=== PATIENT | male | born 1970 | race Caucasian/White ===

== ENCOUNTER 2016-10-18 07:14 | Inpatient (IN) | payer BC ==
[2016-10-18] MEDS ORDERED: NITROGLYCERIN OINT 1 INCH/GM PACKET TOPICAL STA (07:37)
[2016-10-18] MEDS ORDERED: ASPIRIN 81 MG CHEW PO STA (07:37)
--- NOTE | 2016-10-18 07:41 | ED ---
General Adult HPI - General Chief complaint: Chest Pain Stated complaint: Chest pain Time Seen by Provider: 10/18/16 07:34 Source: patient, RN notes reviewed Mode of arrival: wheelchair Limitations: no limitations - History of Present Illness Initial comments: Patient is a pleasant 46-year-old male presenting to the emergency department complaining of chest discomfort. Onset of symptoms was around 3 AM. Symptoms woke patient from sleep. Patient has been sweaty. Patient was mildly short of breath. Discomfort felt like tightness or pressure. Discomfort is much improved and currently rated as a 3 or 4/10. Patient did have similar symptoms around 10 years ago associated with myocarditis. No leg pain or leg swelling. No cough or fever. Discomfort is sternal. No radiation. - Related Data Home Medications Medication Instructions Recorded Confirmed Atorvastatin [Lipitor] 20 mg PO HS 10/18/16 10/18/16 Hydrocodone/Acetaminophen [[place] 1 tab PO Q6H PRN 10/18/16 10/18/16 10-325] Ranitidine HCl [Zantac] 150 mg PO ONCE PRN 10/18/16 10/18/16 Sulfamethox-Tmp 800-160Mg [Bactrim 1 tab PO Q12HR 10/18/16 10/18/16 DS 800-160 mg] Allergies Allergy/AdvReac Type Severity Reaction Status Date / Time No Known Allergies Allergy Verified 10/18/16 08:30 Review of Systems ROS Statement: Those systems with pertinent positive or pertinent negative responses have been documented in the HPI. ROS Other: All systems not noted in ROS Statement are negative. Constitutional: Denies: fever Eyes: Denies: eye pain ENT: Denies: ear pain Respiratory: Reports: dyspnea. Denies: cough Cardiovascular: Reports: chest pain Endocrine: Denies: fatigue Gastrointestinal: Denies: abdominal pain Genitourinary: Denies: dysuria Musculoskeletal: Denies: back pain Skin: Denies: rash Neurological: Denies: weakness Past Medical History Past Medical History: GERD/Reflux Additional Past Medical History / Comment(s): BACK PAIN, MYOCARDITIS History of Any Multi-Drug Resistant Organisms: None Reported Past Surgical History: No Surgical Hx Reported Past Psychological History: No Psychological Hx Reported Smoking Status: Never smoker Past Alcohol Use History: None Reported Past Drug Use History: None Reported General Exam Limitations: no limitations General appearance: alert, in no apparent distress Head exam: Present: atraumatic Eye exam: Present: normal appearance, PERRL ENT exam: Present: normal oropharynx Neck exam: Present: normal inspection Respiratory exam: Present: normal lung sounds bilaterally Cardiovascular Exam: Present: regular rate, normal rhythm, normal heart sounds Expanded Peripheral pulses: 2+: Radial (R), Radial (L), Posterior Tibialis (R), Posterior Tibialis (L) GI/Abdominal exam: Present: soft. Absent: tenderness Extremities exam: Present: normal inspection. Absent: pedal edema, calf tenderness Neurological exam: Present: alert Psychiatric exam: Present: normal affect, normal mood Skin exam: Absent: rash Course Vital Signs 10/18/16 10/18/16 10/18/16 07:18 07:55 08:01 Temperature 97.0 F L Pulse Rate 106 H 94 Pulse Rate [ 97 Bilateral Sitting Radial] Respiratory 22 16 Rate Blood Pressure 171/96 163/96 O2 Sat by Pulse 98 100 Oximetry 10/18/16 10/18/16 10/18/16 08:38 09:06 10:28 Temperature Pulse Rate 100 100 103 H Pulse Rate [ Bilateral Sitting Radial] Respiratory 16 16 15 Rate Blood Pressure 165/77 145/74 145/93 O2 Sat by Pulse 100 100 98 Oximetry EKG Findings - EKG Comments: EKG Findings:: Normal sinus rhythm at 98. Normal intervals. Normal axis. Normal QRS. No acute ST change. Medical Decision Making - Medical Decision Making Patient reexamined and resting comfortably in bed. Patient states symptoms are essentially resolved at this time. Patient does states symptoms are intermittent. Case was discussed in detail with Dr. khan, who will admit for Dr. Smith. - Lab Data Result diagrams: 10/18/16 08:02 10/18/16 08:02 Lab Results 10/18/16 10/18/16 10/18/16 Range/Units 08:02 08:02 08:02 WBC 12.8 H (3.8-10.6) k/uL RBC 5.39 (4.30-5.90) m/uL Hgb 16.6 (13.0-17.5) gm/dL Hct 48.8 (39.0-53.0) % MCV 90.5 (80.0-100.0) fL MCH 30.9 (25.0-35.0) pg MCHC 34.1 (31.0-37.0) g/dL RDW 12.6 (11.5-15.5) % Plt Count 200 (150-450) k/uL Neutrophils % 89 % Lymphocytes % 6 % Monocytes % 4 % Eosinophils % 1 % Basophils % 0 % Neutrophils # 11.4 H (1.3-7.7) k/uL Lymphocytes # 0.7 L (1.0-4.8) k/uL Monocytes # 0.6 (0-1.0) k/uL Eosinophils # 0.1 (0-0.7) k/uL Basophils # 0.0 (0-0.2) k/uL PT (9.0-12.0) sec INR (<1.1) APTT (22.0-30.0) sec Sodium 143 (137-145) mmol/L Potassium 4.4 (3.5-5.1) mmol/L Chloride 104 (98-107) mmol/L Carbon Dioxide 27 (22-30) mmol/L Anion Gap 12 mmol/L BUN 22 H (9-20) mg/dL Creatinine 1.00 (0.66-1.25) mg/dL Est GFR (MDRD) Af Amer >60 (>60 ml/min/1.73 sqM) Est GFR (MDRD) Non-Af >60 (>60 ml/min/1.73 sqM) Glucose 135 H (74-99) mg/dL Calcium 9.5 (8.4-10.2) mg/dL Magnesium 1.9 (1.6-2.3) mg/dL Total Bilirubin 1.1 (0.2-1.3) mg/dL AST 124 H (17-59) U/L ALT 100 H (21-72) U/L Alkaline Phosphatase 104 (38-126) U/L Total Creatine Kinase 67 (55-170) U/L CK-MB (CK-2) 0.4 (0.0-2.4) ng/mL CK-MB (CK-2) Rel Index 0.6 Troponin I <0.012 (0.000-0.034) ng/mL NT-Pro-B Natriuret Pep pg/mL Total Protein 7.3 (6.3-8.2) g/dL Albumin 4.5 (3.5-5.0) g/dL 10/18/16 10/18/16 Range/Units 08:02 08:02 WBC (3.8-10.6) k/uL RBC (4.30-5.90) m/uL Hgb (13.0-17.5) gm/dL Hct (39.0-53.0) % MCV (80.0-100.0) fL MCH (25.0-35.0) pg MCHC (31.0-37.0) g/dL RDW (11.5-15.5) % Plt Count (150-450) k/uL Neutrophils % % Lymphocytes % % Monocytes % % Eosinophils % % Basophils % % Neutrophils # (1.3-7.7) k/uL Lymphocytes # (1.0-4.8) k/uL Monocytes # (0-1.0) k/uL Eosinophils # (0-0.7) k/uL Basophils # (0-0.2) k/uL PT 10.2 (9.0-12.0) sec INR 1.0 (<1.1) APTT 21.0 L (22.0-30.0) sec Sodium (137-145) mmol/L Potassium (3.5-5.1) mmol/L Chloride (98-107) mmol/L Carbon Dioxide (22-30) mmol/L Anion Gap mmol/L BUN (9-20) mg/dL Creatinine (0.66-1.25) mg/dL Est GFR (MDRD) Af Amer (>60 ml/min/1.73 sqM) Est GFR (MDRD) Non-Af (>60 ml/min/1.73 sqM) Glucose (74-99) mg/dL Calcium (8.4-10.2) mg/dL Magnesium (1.6-2.3) mg/dL Total Bilirubin (0.2-1.3) mg/dL AST (17-59) U/L ALT (21-72) U/L Alkaline Phosphatase (38-126) U/L Total Creatine Kinase (55-170) U/L CK-MB (CK-2) (0.0-2.4) ng/mL CK-MB (CK-2) Rel Index Troponin I (0.000-0.034) ng/mL NT-Pro-B Natriuret Pep 15 pg/mL Total Protein (6.3-8.2) g/dL Albumin (3.5-5.0) g/dL - Radiology Data Radiology results: report reviewed (Ultrasound shows echogenic foci that may represent sludge or stone.), image reviewed (Two-view chest x-ray shows no acute process.) Disposition Clinical Impression: Chest pain Disposition: ADMITTED IP TO THIS HOSP
[2016-10-18 08:16] LABS: Basophils % (A) 0 %; CH 31.6; CHCM 35.2; Eosinophils # (A) 0.1 k/uL (0-0.7); Eosinophils % (A) 1 %; HCT 48.8 % (39.0-53.0); HDW 3.33; HGB 16.6 gm/dL (13.0-17.5); Luc # (Auto) 0.06; Luc % (Auto) 0; Lymphocytes # (A) 0.7 k/uL (1.0-4.8); Lymphocytes % (A) 6 %; MCH 30.9 pg (25.0-35.0); MCHC 34.1 g/dL (31.0-37.0); MCV 90.5 fL (80.0-100.0); Mean Platelet Volume 7.9; Monocytes # (A) 0.6 k/uL (0-1.0); Monocytes % (A) 4 %; Neutrophils # (A) 11.4 k/uL (1.3-7.7); Neutrophils % (A) 89 %; RBC 5.39 m/uL (4.30-5.90); RDW 12.6 % (11.5-15.5); WBC 12.8 k/uL (3.8-10.6); WBC (Perox) 13.67
--- NOTE | 2016-10-18 08:17 | XR ---
EXAMINATION TYPE: XR chest 2V DATE OF EXAM: 10/18/2016 8:09 AM COMPARISON: NONE HISTORY: Chest pain TECHNIQUE: Frontal and lateral views of the chest are obtained. FINDINGS: There is no focal air space opacity, pleural effusion, or pneumothorax seen. The cardiac silhouette size is within normal limits. There are overlying cardiac leads. The osseous structures a re intact. IMPRESSION: No acute cardiopulmonary process.
[2016-10-18 08:22] LABS: ALT 100 U/L (21-72); AST 124 U/L (17-59); Alkaline Phosphatase 104 U/L (38-126); Anion Gap 12 mmol/L; Blood Urea Nitrogen 22 mg/dL (9-20); Calcium 9.5 mg/dL (8.4-10.2); Carbon Dioxide 27 mmol/L (22-30); Chloride 104 mmol/L (98-107); Glucose 135 mg/dL (74-99); Magnesium 1.9 mg/dL (1.6-2.3); Non-African American GFR(MDRD) >60 (>60 ml/min/1.73 sqM); Potassium 4.4 mmol/L (3.5-5.1); Sodium 143 mmol/L (137-145); Total Bilirubin 1.1 mg/dL (0.2-1.3); Total Protein 7.3 g/dL (6.3-8.2)
[2016-10-18 08:27] LABS: Creatine Kinase 67 U/L (55-170)
[2016-10-18 08:28] LABS: Prothrombin Time 10.2 sec (9.0-12.0)
[2016-10-18] MEDS ORDERED: NITROGLYCERIN SL TABS 0.4 MG TAB SUBLINGUAL STA (08:37)
[2016-10-18 08:39] LABS: Creatine Kinase MB 0.4 ng/mL (0.0-2.4); Troponin I <0.012 ng/mL (0.000-0.034)
--- NOTE | 2016-10-18 10:14 | US ---
EXAMINATION TYPE: US gallbladder DATE OF EXAM: 10/18/2016 9:38 AM COMPARISON: NONE CLINICAL HISTORY: Pain. Epigastric pain EXAM MEASUREMENTS: Liver Length: 16.7 cm Gallbladder Wall: 0.3 cm CBD: 0.4 cm Right Kidney: 9.9 x 4.7 x 5.0 cm Pancreas: obscured by overlying bowel gas Liver: visualized portions appear wnl Gallbladder: possible cluster of stones Evidence for sonographic Boyd's sign: Yes CBD: visualized portion appears wnl Right Kidney: visualized portions show no evidence of hydronephrosis or mass IMPRESSION: 1. Echogenic foci within the gallbladder may represent sludge or multiple tiny adherent stones. Corre late clinically. Short-term follow-up exam could be obtained to assess stability.
[2016-10-18] MEDS ORDERED: NITROGLYCERIN SL TABS 0.4 MG TAB SUBLINGUAL PRN (10:33)
[2016-10-18] MEDS ORDERED: MORPHINE SULFATE 4 MG/ML SYRINGE IV PRN (10:33)
--- NOTE | 2016-10-18 11:39 | ECHOF ---
Referral Reason:Chest pain with history of myocarditis MEASUREMENTS -------- HEIGHT: 180.3 cm WEIGHT: 40.8 kg BP: IVSd: 1.0 cm (0.6 - 1.1) LVIDd: 3.3 cm (3.9 - 5.3) LVPWd: 1.2 cm (0.6 - 1.1) IVSs: 1.5 cm LVIDs: 2.4 cm LVPWs: 1.3 cm Ao Diam: 3.1 cm (2.0 - 3.7) AV Cusp: 1.9 cm (1.5 - 2.6) LA Diam: 2.2 cm (2.7 - 3.8) MV EXCURSION: 14.881 mm (> 18.000) MV EF SLOPE: 71 mm/s (70 - 150) EPSS: 1.3 cm MV E Dwight: 0.62 m/s MV DecT: 108 ms MV A Dwight: 1.03 m/s MV E/A Ratio: 0.61 RAP: 5.00 mmHg RVSP: 12.99 mmHg FINDINGS -------- Sinus rhythm. This was a technically good study. The left ventricular size is normal. There is borderline concentric left ventricular hypertrophy. Overall left ventricular systolic function is normal with, an EF between 55 - 60 %. The right ventricle is normal in size and function. The left atrium is normal in size. The right atrium is normal in size. The aortic valve is trileaflet, and appears structurally normal. No aortic stenosis or regurgitation. The mitral valve is normal. There is trace mitral regurgitation. Trace tricuspid regurgitation present. The right ventricular systolic pressure, as measured by Doppler, is 12.99mmHg. There is no pulmonic regurgitation present. The aortic root size is normal. There is no pericardial effusion. CONCLUSIONS -------- 1. Sinus rhythm. 2. There is no pulmonic regurgitation present. 3. The aortic root size is normal. 4. There is no pericardial effusion. 5. This was a technically good study. 6. There is borderline concentric left ventricular hypertrophy. 7. Overall left ventricular systolic function is normal with, an EF between 55 - 60 %. 8. The left atrium is normal in size. 9. The aortic valve is trileaflet, and appears structurally normal. No aortic stenosis or regurgitation. 10. There is trace mitral regurgitation. 11. Trace tricuspid regurgitation present. 12. The right ventricular systolic pressure, as measured by Doppler, is 12.99mmHg. DIGITAL COMMUNICATIONS MANAGER: Jocelyn Merdano RDCS
[2016-10-18 14:41] LABS: Creatine Kinase 59 U/L (55-170)
--- NOTE | 2016-10-18 14:41 | CONS ---
DATE OF CONSULTATION: CHIEF COMPLAINT: Epigastric discomfort. Srikanth is a 46-year-old gentleman with history of myocarditis almost 10 years ago, had a cardiac catheterization at that time, comes in primarily complaining of band-like discomfort in the epigastric area; mild to moderate intensity without clear-cut relieving or exacerbating factors, unassociated with diaphoresis and unrelated to exertion. Cardiology has been consulted both because of his cardiac history and this atypical chest pain that he had. At the time of my evaluation, he is pain free, hemodynamically stable and in no apparent distress. EKG does not reveal acute ischemic changes and I reviewed his prior angiographic data. Patient also had an ultrasound of the gallbladder and that represents sludge within the gallbladder. He had an echocardiogram that shows normal LV function. Given the atypical symptoms, I am going to obtain cardiac enzymes and if they are negative, discharge him home in the morning and arrange for an outpatient stress test. Past medical history is significant for dyslipidemia. Medications include Zantac, Bactrim, Lipitor and [place]. ALLERGIES: There are no known drug allergies. FAMILY HISTORY: Negative for premature coronary artery disease. SOCIAL HISTORY: Negative for current smoking, alcohol abuse or drug abuse. REVIEW OF SYSTEMS: HEENT: Unremarkable. CARDIAC: As described above. RESPIRATORY: Negative. GI: Negative. GENITOURINARY: Negative. ALLERGY/IMMUNOLOGY: Negative. MUSCULOSKELETAL: Negative. DERMATOLOGY: Negative. CONSTITUTIONAL: Negative. ONCOLOGICAL: Negative. The rest of the system review is not relevant. On exam, comfortable at rest. Vital signs are stable. There is no jugular venous distention. Carotid upstroke is normal. There is no bruit. Chest is clear to auscultation and percussion. Heart exam reveals first and second heart sounds. No gallop. No murmur, no rub. Abdomen is soft, nontender. Exam of extremities did not reveal edema. Peripheral pulses are felt. Labs show a hemoglobin of 16.6, platelet count is 200. Potassium is 4.4. Creatinine is 1. Troponin is negative. BNP is normal. ASSESSMENT: 1. Atypical chest pain. 2. History of dyslipidemia. PLAN: I looked at the echocardiogram, EKG and lab tests so far. Will obtain troponins. If they are negative he can be discharged home with outpatient follow-up arranged through my office.
[2016-10-18 14:55] LABS: Creatine Kinase MB 0.3 ng/mL (0.0-2.4); Troponin I <0.012 ng/mL (0.000-0.034)
--- NOTE | 2016-10-18 17:20 | HP ---
DATE OF ADMISSION: 10/18/2016 PRESENTING COMPLAINT: Chest pain. HISTORY OF PRESENTING COMPLAINT: This is a very pleasant 46-year-old patient of Dr. Smith. Patient's chronic stable medical conditions include GERD, hyperlipidemia, hepatitis C that was treated. Patient did have a cardiac catheterization in 2006 that was negative. Patient around 3:00 woke up in the morning with indigestion, central to lower part of the chest, epigastric. He took some TUMS and went back to sleep. Around 5:00 he started feeling a more aggressive sensation there, like somebody was standing on his chest. He broke out into a sweat. Some shortness of breath was present. No dizziness. He took a Zantac and did not feel better, then decided to come in. Previous night patient had a rotisserie chicken and garlic bread, which sometimes felt like heartburn. The patient was concerned about his heart and therefore decided to come in. REVIEW OF SYSTEMS: CONSTITUTIONAL: None. HEENT: None. RESPIRATORY: None. CARDIOVASCULAR: None. GASTROINTESTINAL: As above. GENITOURINARY: None. MUSCULOSKELETAL: None. DERMATOLOGICAL: None. HEMATOLOGICAL: None. LYMPHATICS: None. PSYCHIATRIC: None. NEUROLOGICAL: None. PAST HISTORY: 1. GERD. 2. Hyperlipidemia. 3. Myocarditis. 4. Hepatitis C. PAST SURGICAL HISTORY: 1. Cardiac catheterization. 2. Colonoscopy with benign polypectomy. SOCIAL HISTORY: . 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 Smoked for about 25 years; stopped in 2011. FAMILY HISTORY: Father had prostate cancer. HOME MEDICATIONS: 1. Zantac 150 mg p.o. daily. 2. Bactrim DS q.12. 3. Lipitor 20 mg at bedtime. 4. [place] 1 tablet q.6 p.r.n. ALLERGIES: NONE. On examination, temperature 97, pulse 106, respiration 22, blood pressure 171/96, pulse ox 98% on room air. Repeat blood pressure has come down to 127/78. GENERAL APPEARANCE: Average build. Sitting up. Very anxious-appearing. EYES: Pupils equal. Conjunctivae normal. HEENT: Oral cavity normal. NECK: JVD not raised. Mass not palpable. RESPIRATORY: Effort normal. Lungs are clear. CARDIOVASCULAR: First and second sounds normal. No edema. ABDOMEN: Soft, nontender. Liver and spleen not palpable. LYMPHATIC: No lymph node palpable in neck or axillae. PSYCHIATRY: Alert and oriented x3. Mood and affect anxious-appearing. NEUROLOGICAL: Pupils equal. Cranial nerves grossly intact. Power and sensation grossly intact. INVESTIGATIONS: White count 12.8, hemoglobin 16.6. AST and ALT of 124 and 100. Troponin negative. EKG: nonspecific changes. Ultrasound of the gallbladder shows gallbladder sludge, many tiny adherent stones. ASSESSMENT: 1. Episode of severe indigestion with perspiration, some shortness of breath, some mild epigastric tenderness; could be flareup of heartburn. Need to also consider dyskinetic gallbladder. 2. Gastroesophageal reflux disease. 3. Hyperlipidemia. 4. Hepatitis C, treated. 5. Normal cardiac catheterization in 2006. PLAN: Cardiology was consulted. Will do a HIDA scan to rule out a gallbladder dyskinetic disorder and get a surgical opinion. Care was discussed with the patient.
[2016-10-18] MEDS: NITROGLYCERIN OINT 1 INCH/GM PACKET TOPICAL SCH ×3 (19:55→23:39)
--- NOTE | 2016-10-18 20:51 | P.PN ---
Progress Note - Text Please see full dictated consult. Patient seen and evaluated. Clinical exam and findings consistent with acute cholecystitis as ultrasound and HIDA was reviewed. Plan for laparoscopic cholecystectomy for acute cholecystitis.
[2016-10-18] MEDS ORDERED: HEPARIN SODIUM,PORCINE 5,000 UNIT/ML 1 ML VIAL SQ ONE (21:00)
[2016-10-18] MEDS ORDERED: ceFAZolin 2 GM in SODIUM CHLORIDE 0.9% 100 ML IVPB ONE (21:00)
[2016-10-18 21:46] LABS: Creatine Kinase 63 U/L (55-170)
[2016-10-18] MEDS: ACETAMINOPHEN TAB 325 MG TAB PO PRN (21:51)
[2016-10-18 22:00] LABS: Creatine Kinase MB 0.3 ng/mL (0.0-2.4); Troponin I <0.012 ng/mL (0.000-0.034)
[2016-10-18] MEDS: ATORVASTATIN 20 MG TAB PO SCH (22:06)
--- NOTE | 2016-10-18 22:55 | NM ---
EXAMINATION TYPE: NM hepatobiliary wo EF DATE OF EXAM: 10/18/2016 9:00 PM COMPARISON: Ultrasound gallbladder October 18, 2016 HISTORY: Pain TECHNIQUE: After the intravenous administration of 5.5 mCi Tc 99m Mebrofenin hepatobiliary anterior p lanar scintigraphy is performed as per departmental protocol. Immediate images were obtained post in jection. FINDINGS: Prompt radiopharmaceutical activity seen throughout the liver parenchyma, and this homogeneous radiop harmaceutical activity persisted throughout the 3 hours examination. Although continuous anterior planar scintigraphic imaging was obtained for 60 minutes postinjection, there was no visualization of the gallbladder, remainder of the extrahepatic biliary tree, or the sma ll bowel. Therefore, additional delayed imaging was obtained at 90 minutes post injection, at 2 hours post injection, at 2.5 hour postinjection, and at 3 hour post injection. All of these images had the same appearance, with a strong homogeneous hepatogram and nonvisualization of the gallbladder, remai nder of the extrahepatic biliary tree, or the small bowel. IMPRESSION: PROMINENT HEPATOBILIARY TRANSPORT SCINTIGRAPHIC FINDINGS SUGGEST HONEY COMMON DUCT OBSTRUCTION.
[2016-10-18] MEDS: ONDANSETRON 4 MG/2 ML VIAL IVP SCH (23:41)
[2016-10-18] MEDS: AMPICILLIN-SULBACTAM 3 GM in SODIUM CHLORIDE 0.9% 100 ML IVPB SCH (23:41)
[2016-10-19] MEDS: NITROGLYCERIN OINT 1 INCH/GM PACKET TOPICAL SCH (05:58)
[2016-10-19] MEDS: ONDANSETRON 4 MG/2 ML VIAL IVP SCH ×3 (05:59→19:25)
[2016-10-19 06:59] LABS: Basophils % (A) 0 %; CH 31.6; CHCM 35.2; Eosinophils # (A) 0.1 k/uL (0-0.7); Eosinophils % (A) 1 %; HCT 47.7 % (39.0-53.0); HDW 3.36; Luc % (Auto) 1; Lymphocytes # (A) 0.9 k/uL (1.0-4.8); Lymphocytes % (A) 10 %; MCH 30.3 pg (25.0-35.0); MCHC 33.5 g/dL (31.0-37.0); MCV 90.4 fL (80.0-100.0); Mean Platelet Volume 8.1; Monocytes # (A) 0.7 k/uL (0-1.0); Monocytes % (A) 7 %; Neutrophils # (A) 7.5 k/uL (1.3-7.7); Neutrophils % (A) 81 %; RBC 5.28 m/uL (4.30-5.90); WBC 9.2 k/uL (3.8-10.6); WBC (Perox) 9.93
[2016-10-19 07:09] LABS: ALT 402 U/L (21-72); AST 248 U/L (17-59); Alkaline Phosphatase 144 U/L (38-126); Anion Gap 12 mmol/L; Blood Urea Nitrogen 12 mg/dL (9-20); Calcium 9.5 mg/dL (8.4-10.2); Carbon Dioxide 27 mmol/L (22-30); Chloride 104 mmol/L (98-107); Cholesterol 114 mg/dL (<200); Glucose 111 mg/dL (74-99); HDL Cholesterol 37 mg/dL (40-60); Non-African American GFR(MDRD) >60 (>60 ml/min/1.73 sqM); Potassium 4.6 mmol/L (3.5-5.1); Sodium 143 mmol/L (137-145); Total Bilirubin 7.5 mg/dL (0.2-1.3); Triglycerides 79 mg/dL (<150)
[2016-10-19] MEDS: ACETAMINOPHEN TAB 325 MG TAB PO PRN ×2 (07:21→19:21)
[2016-10-19 10:21] LABS: Amylase 43 U/L (30-110)
[2016-10-19] MEDS: AMPICILLIN-SULBACTAM 3 GM in SODIUM CHLORIDE 0.9% 100 ML IVPB SCH ×2 (10:22→16:13)
[2016-10-19] MEDS: ASPIRIN 325 MG TAB PO SCH (10:22)
[2016-10-19] MEDS ORDERED: IV FLUID CONTINUATION 1,000 ML IV ONE (10:55)
[2016-10-19] MEDS ORDERED: INDOMETHACIN 50MG SUPPOSITORY RECTAL ONE (11:05)
--- NOTE | 2016-10-19 11:27 | P.CONS ---
History of Present Illness - Reason for Consult Consult date: 10/19/16 Jaundice for possible ERCP - Chief Complaint Epigastric pain - History of Present Illness The patient is a 46-year-old male who presented to the emergency room early yesterday with the complaint of severe epigastric pain that wakened him up at 3 AM. The patient did not have any nausea or vomiting. His pain and eventually was felt in the back as well. No fever or chills. He presented to the emergency room and was found to have abnormal liver enzymes and cholelithiasis. He was scheduled for cholecystectomy today for cholecystitis, however, his bilirubin reached 7.5 this morning and a HIDA scan showed complete absence of markers in the intestine. We are asked to see him for consideration of ERCP. The patient had an ingrown toenail removed the day before and was placed on Bactrim off which she may have taken 1 or 2 doses. He has no issues with sulfa drugs in the past except for some stomach upset. The patient reported similar short-lived, milder episodes of pain, or the last several months and he had a significant episode around 2 weeks ago. In the past , he dismissed his pain to be indigestion type issue. The patient has history of hepatitis C infection which he acquired from blood transfusions as a child and has had history of myocarditis. He was treated on 2 different occasions for his hepatitis C, apparently, he has not responded the first time to PEG interferon and ribavirin combination but responded to oral treatment within the last year likely with harvoni. Review of Systems Constitutional: Denied fever, chills or unintentional weight loss Neurologic: No headaches, double vision or other sensory or motor changes Cardiopulmonary: No chest pains, shortness of breath or palpitations. Has history of hyperlipidemia and myocarditis Gastrointestinal: See present illness above. Patient does history of reflux Genitourinary: No hematuria, dysuria or frequency Musculoskeletal: History of back pain, on Vicodin Endocrine: No diabetes or thyroid disease Skin: No rashes Psychiatric: No anxiety or depression Past Medical History Past Medical History: GERD/Reflux, Hyperlipidemia, Liver Disease Additional Past Medical History / Comment(s): 2006 MYOCARDITIS, chronic back pain, hepatitis C successfully treated, sinus problems-had recent sinus infection, , L foot ingrown toenail removed yesterday-on ABX, History of Any Multi-Drug Resistant Organisms: None Reported Past Surgical History: Heart Catheterization Additional Past Surgical History / Comment(s): 2006 normal cardiac cath, colonoscopy with benign polypectomy. Past Anesthesia/Blood Transfusion Reactions: No Reported Reaction Past Psychological History: No Psychological Hx Reported Additional Psychological History / Comment(s): Pt resides with spouse and 2 sons. He is independent. Smoking Status: Former smoker Past Alcohol Use History: None Reported Additional Past Alcohol Use History / Comment(s): Pt startes smoking in 1986 and quit in 2011. Past Drug Use History: None Reported - Past Family History Father Family Medical History: Cancer, Dementia, Hyperlipidemia Additional Family Medical History / Comment(s): Father had prostate cancer. He of dementia at the age of 72yrs. Mother Family Medical History: Hyperlipidemia, Hypertension, Thyroid Disorder Medications and Allergies Home Medications Medication Instructions Recorded Confirmed Type Atorvastatin [Lipitor] 20 mg PO HS 10/18/16 10/18/16 History Hydrocodone/Acetaminophen [[place] 1 tab PO Q6H PRN 10/18/16 10/18/16 History 10-325] Ranitidine HCl [Zantac] 150 mg PO ONCE PRN 10/18/16 10/18/16 History Sulfamethox-Tmp 800-160Mg [Bactrim 1 tab PO Q12HR 10/18/16 10/18/16 History DS 800-160 mg] Allergies Allergy/AdvReac Type Severity Reaction Status Date / Time No Known Allergies Allergy Verified 10/18/16 08:30 Physical Exam General: Appeared stated age, very pleasant in no acute distress Head and neck: Normocephalic and atraumatic, conjunctivae pink and sclerae icteric, no masses in the neck or tracheal shifts. No adenopathy or thyromegaly Lungs: Clear to auscultation with no dullness to percussion Heart: Regular Ammann no abnormal sounds, murmurs, gallops or friction rubs Abdomen: Soft no masses or organomegalies or tenderness. Bowel sounds present Extremities: No clubbing cyanosis or edema Neurologic: Alert and oriented 3. Cranial nerves grossly intact, no gross sensory or motor abnormalities. Results CBC & Chem 7: 10/19/16 06:28 10/19/16 06:28 Assessment and Plan Plan: This 46-year-old male presents with epigastric pain and is found to have abnormal liver chemistries including a rising bilirubin with the finding of cholelithiasis and abnormal HIDA scan as detailed above. The possibility of common bile duct stone is considered. Patient has history of treated hepatitis C viral infection which I do not believe is contributing to the problem at this time. We should keep in mind possible medication reaction as he was placed on Bactrim after removal of ingrown toenail the day before the onset of his symptoms. Agree with your current management. The patient is on antibiotics which will be continued. I will proceed with an ERCP today, further plans will be made based on the findings.
--- NOTE | 2016-10-19 11:52 | PN ---
Mr. Rosales is a 46-year-old male who presented with symptoms of chest discomfort and abdominal discomfort. He was diagnosed with cholelithiasis. He is feeling better today. His breathing has been stable. He was seen by Dr. Gutierrez yesterday and he has been evaluated for possible cholecystectomy. He has been ambulating without much difficulty. He continues to be on aspirin once a day, Lipitor 20 mg daily, nitro paste. PHYSICAL EXAMINATION: Blood pressure 101/50 with the heart rate in 90s. LUNGS: Clear. HEART: Regular rate and rhythm. S1 and S2, no S3, no rub. ABDOMEN: Soft. No rebound. Positive bowel sounds. EXTREMITIES: No edema. Lab data revealed troponin less than 0.012. His AST is up to 248 and ALT of 402. His total bilirubin yesterday was 1.1 to 7.5 today. His cholesterol is 114 with an LDL of 61. Hemoglobin of 16. IMPRESSION: 1. Acute cholecystitis with obstructive pattern. 2. History of hyperlipidemia. RECOMMENDATIONS: From the cardiac standpoint, I will stop his nitrate. He had an echocardiogram that revealed a normal left ventricular size and systolic function. From the cardiac standpoint, there is no evidence to suggest any cardiac abnormality. We will see him on an as needed basis and await the input of the surgical service. Please feel to call us for any questions.
[2016-10-19] MEDS ORDERED: FLUMAZENIL 0.1 MG/ML 5 ML VIAL IVP ONE (12:22)
[2016-10-19] MEDS ORDERED: KETAMINE 10 MG/ML 20 ML VIAL ONE (12:22)
[2016-10-19] MEDS ORDERED: PROPOFOL 10 MG/ML 20 ML VIAL IV ONE (12:22)
[2016-10-19] MEDS ORDERED: LIDOCAINE 1% INJ 10MG/ML (20 ML MDV) ONE (12:22)
[2016-10-19] MEDS ORDERED: MIDAZOLAM 2 MG/2 ML VIAL ONE (12:22)
[2016-10-19] MEDS ORDERED: GLUCAGON 1 MG/ML VIAL ONE (12:22)
[2016-10-19] MEDS ORDERED: ESMOLOL 100 MG/10 ML VIAL ONE (12:22)
[2016-10-19] MEDS ORDERED: SODIUM CHLORIDE 0.9% 1,000 ML IV ONE (12:30)
[2016-10-19] MEDS ORDERED: IOHEXOL 300 MG/ML 50 ML BOTTLE INJ ONE (12:59)
--- NOTE | 2016-10-19 13:27 | P.PCN ---
Date of Procedure: 10/19/16 Procedure(s) Performed: Procedure: Endoscopic retrograde cholangiopancreatography ERCP, with sphincterotomy and passing of the 8.5 mm balloon catheter fully inflated across the sphincterotomy site. Preoperative diagnosis: Abdominal pain, cholelithiasis and abnormal liver enzymes with jaundice and suspected common bile duct stone. Postoperative diagnosis: Normal papilla and pancreatic duct. Cholelithiasis and suspected filling defects in the common bile duct, S/P sphincterotomy with the passing of the 8.5 mm balloon catheter and withdrawing it fully inflated across the sphincterotomy site. Preparation and sedation: Was provided by anesthesia. Brief clinical history: The patient is a 46-year-old male who presented to the emergency room early yesterday with the complaint of severe epigastric pain that wakened him up at 3 AM. The patient did not have any nausea or vomiting. His pain and eventually was felt in the back as well. No fever or chills. He presented to the emergency room and was found to have abnormal liver enzymes and cholelithiasis. He was scheduled for cholecystectomy today for cholecystitis, however, his bilirubin reached 7.5 this morning and a HIDA scan showed complete absence of markers in the intestine. We were asked to see him for consideration of ERCP. The patient reported similar short-lived, milder episodes of pain, over the last several months and he had a significant episode around 2 weeks ago. In the past, he dismissed his pain to be indigestion type issue. The details are summarized in the history and physical and dictated consultation. Procedure: With the patient in the prone position and after informed consent and adequate sedation, I passed the Olympus video duodenoscope down the esophagus into the stomach then passed it through the pylorus into the duodenum and brought the papilla into view. The papilla appeared normal. Initial cannulation and injection with dye resulted in opacification of the pancreatic duct which appeared within normal limits. Subsequently, I was able to selectively cannulate the common bile duct and inject dye. There was evidence of cholelithiasis with filling defects in the common bile duct noted under fluoroscopy that were not persistent in one single area. Because of his presentation, I went ahead and exchanged the catheter for a sphincterotome over a guidewire and performed adequate sphincterotomy following which I passed the 8.5 mm balloon catheter to the proximal common bile duct and inflated it and brought it across the sphincterotomy site fully inflated couple times. I did not see any actual stones, in this semi-blind maneuver. The patient tolerated the procedure well and did not have anemia and it complications. Plan: The patient was briefed regarding the findings on this examination and I discussed with his family. Will allow clear liquid diet and monitor his counts closely. I believe his cholecystectomy is now scheduled for Friday. I will discuss with you and follow with interest.
--- NOTE | 2016-10-19 14:06 | FL ---
FLUOROSCOPY 3 minutes and 38 seconds of fluoroscopy time were utilized during ERCP. 1 images document the procedu re.
[2016-10-19] MEDS ORDERED: BENZOCAINE/MENTHOL LOZENG 1 EACH LOZENGE MUCOUS MEM PRN (14:46)
--- NOTE | 2016-10-19 15:25 | P.GSCN ---
History of Present Illness Consult date: 10/18/16 Reason for Consult: Abdominal pain Requesting physician: Gilmer Sinha History of present illness: The patient is a 46-year-old gentleman who reports last night eating rotisserie chicken including pistachio ice cream. He has a family history of gallbladder disease in his mother who had a recent cholecystectomy as well. He reports developing acute epigastric abdominal pain with radiation along the bilateral rib. Additionally he also had chest pain which is currently being evaluated for cardiac source. Thus far, his cardiac enzymes are unremarkable. He completed an ultrasound consistent with multiple gallstones. At the time of my evaluation, he is undergoing his HIDA scan. As result of his abdominal pain, Gen. Surgery is consulted. Review of Systems CONSTITUTIONAL: Denies any fever or chills. Denies recent weight loss or weight gain. HEENT: Denies any trouble with vision, hearing or nosebleeds. No difficulty swallowing. LYMPHATIC: The patient denies any lumps and bumps around the neck. ENDOCRINE: Denies any thyroid disorders. Denies any blood sugar glucose intolerance. RESPIRATORY: Denies pneumonia. Denies any troubles with breathing or dyspnea on exertion. CARDIOVASCULAR: Denies any chest pain, palpitations, or recent heart attacks. Previous history of myocarditis. GASTROINTESTINAL: Has heart burn. No constipation or bright red blood per rectum. Has history of hepatitis C. GENITOURINARY: Denies any blood in urine or increased urinary frequency. MUSCULOSKELETAL: Has occassional back pain, stiffness, joint arthritis. NEUROLOGIC: Denies any numbness or tingling along the distal extremities. No seizure disorders or headaches. PSYCHIATRIC: Denies depression or suidical ideation. HEMATOLOGIC: Denies any abnormal bleeding or bruising. Past Medical History Past Medical History: GERD/Reflux, Hyperlipidemia, Liver Disease Additional Past Medical History / Comment(s): 2006 MYOCARDITIS, chronic back pain, hepatitis C successfully treated, sinus problems-had recent sinus infection, , L foot ingrown toenail removed yesterday-on ABX, History of Any Multi-Drug Resistant Organisms: None Reported Past Surgical History: Heart Catheterization Additional Past Surgical History / Comment(s): 2006 normal cardiac cath, colonoscopy with benign polypectomy. Past Anesthesia/Blood Transfusion Reactions: No Reported Reaction Past Psychological History: No Psychological Hx Reported Additional Psychological History / Comment(s): Pt resides with spouse and 2 sons. He is independent. Smoking Status: Former smoker Past Alcohol Use History: None Reported Additional Past Alcohol Use History / Comment(s): Pt startes smoking in 1986 and quit in 2011. Past Drug Use History: None Reported - Past Family History Father Family Medical History: Cancer, Dementia, Hyperlipidemia Additional Family Medical History / Comment(s): Father had prostate cancer. He of dementia at the age of 72yrs. Mother Family Medical History: Hyperlipidemia, Hypertension, Thyroid Disorder Medications and Allergies Home Medications Medication Instructions Recorded Confirmed Type Atorvastatin [Lipitor] 20 mg PO HS 10/18/16 10/18/16 History Hydrocodone/Acetaminophen [[place] 1 tab PO Q6H PRN 10/18/16 10/18/16 History 10-325] Ranitidine HCl [Zantac] 150 mg PO ONCE PRN 10/18/16 10/18/16 History Sulfamethox-Tmp 800-160Mg [Bactrim 1 tab PO Q12HR 10/18/16 10/18/16 History DS 800-160 mg] Allergies Allergy/AdvReac Type Severity Reaction Status Date / Time No Known Allergies Allergy Verified 10/18/16 08:30 Surgical - Exam Vital Signs Temp Pulse Resp BP Pulse Ox 97.0 F L 106 H 22 171/96 98 10/18/16 07:18 10/18/16 07:18 10/18/16 07:18 10/18/16 07:18 10/18/16 07:18 GENERAL: Well developed and in no acute distress. Pleasant. HEENT: No sclera icterus. Extraocular movements grossly intact. Moist buccal mucosa. Head is atraumatic, normocephalic. Hears conversational speech. No nasal drainage. NECK: Supple without lymphadenopathy. No JV distention. CHEST: Non-labored respirations and equal bilateral excursions. CARDIOVASCULAR: Regular rate and rhythm. Palpable 2+ radial pulses. ABDOMEN: Soft, tenderness along the epigastrium and right upper quadrant without peritonitis. MUSCULOSKELETAL: No clubbing, cyanosis or edema. NEUROLOGIC: No focal or lateralizing signs. PSYCH: Appropriate affect. Alert and oriented to person, place and time. Results - Labs 10/19/16 06:28 10/19/16 06:28 - Imaging US - abdomen: report reviewed, image reviewed (Consistent with gallstones) Additional studies: Initial HIDA scan reviewed by me demonstrating only initial light up of the liver. The gallbladder, small bowel, including rest of biliary tree was not visualized consistent with acute cholecystitis and common bile duct obstruction. Assessment and Plan (1) Choledocholithiasis with acute cholecystitis Status: Acute (2) Hepatitis C virus carrier state Status: Acute (3) Family history of gallbladder disease Status: Acute (4) Hyperlipidemia Status: Acute (5) Right upper quadrant abdominal pain Status: Acute (6) Epigastric pain Status: Acute Plan: 1. On review of his laboratory chemistries, I have added amylase and lipase to exclude pancreatitis as well. 2. He has history of gallstones for which laparoscopic cholecystectomy was described. 3. Repeat comprehensive metabolic panel in the morning. 4. Zofran for nausea. 5. Dilaudid for pain. 6. Benefits versus risks for surgical intervention described to him and his family. 7. DVT prophylaxis. 7. Will follow closely.
--- NOTE | 2016-10-19 15:30 | P.PN ---
Subjective Principal diagnosis: Choledocholithiasis The patient is a 46-year-old gentleman admitted yesterday for epigastric abdominal pain including evaluation for atypical chest pain. His HIDA scan was positive for biliary obstruction. This morning, his chemistries returned with elevated bilirubin consistent with complete biliary obstruction. He denies any increased abdominal pain this morning. His family members are at bedside. He was scheduled for laparoscopic cholecystectomy today which is now on hold given his new laboratory findings. Objective - Vital Signs Vital signs: Vital Signs Temp 98.4 F 10/19/16 08:00 Pulse 96 10/19/16 08:00 Resp 18 10/19/16 08:00 BP 101/52 10/19/16 08:00 Pulse Ox 97 10/19/16 08:00 Intake & Output 10/18/16 10/19/16 10/19/16 18:59 06:59 18:59 Intake Total 450 Balance 450 Intake: IV 450 - Exam GENERAL: Well developed and in no acute distress. Pleasant. HEENT: Has sclera icterus. Extraocular movements grossly intact. Moist buccal mucosa. Head is atraumatic, normocephalic. Hears conversational speech. No nasal drainage. NECK: Supple without lymphadenopathy. No JV distention. CHEST: Non-labored respirations and equal bilateral excursions. CARDIOVASCULAR: Regular rate and rhythm. Palpable 2+ radial pulses. ABDOMEN: Soft, mild tenderness along the epigastrium. Nondistended. No peritonitis. MUSCULOSKELETAL: No clubbing, cyanosis or edema. NEUROLOGIC: No focal or lateralizing signs. PSYCH: Appropriate affect. Alert and oriented to person, place and time. - Labs CBC & Chem 7: 10/19/16 06:28 10/19/16 06:28 Assessment and Plan (1) Choledocholithiasis with acute cholecystitis Status: Acute (2) Epigastric pain Status: Acute (3) Family history of gallbladder disease Status: Acute (4) Hepatitis C virus carrier state Status: Acute (5) Hyperlipidemia Status: Acute (6) Right upper quadrant abdominal pain Status: Acute Plan: 1. With his new laboratory results this morning, his cholecystectomy is now on hold. He will need emergent ERCP for impacted stone along the common bile duct. 2. I have personally contacted Dr. Ma regarding the patient's findings and emergent ERCP. 3. Laparoscopic cholecystectomy to be done in the deferred fashion as chemistries and liver enzymes improve. 4. I have started the patient on antibiotics yesterday and would need continued antibiotic coverage. 5. Will follow in the interim regarding resolution of jaundice. 6. Anticipated surgical intervention in 48 hours pending improvement of chemistries. 7. Agree with inpatient hospitalization.
[2016-10-19] MEDS: HYDROmorphone 1 MG/ML 1 ML SYRINGE IVP PRN ×2 (16:12→22:35)
--- NOTE | 2016-10-19 17:44 | PN ---
This 46-year-old gentleman who was admitted with significant chest and epigastric pain has features of acute features of acute cholecystitis per surgery, is being worked up for laparoscopic cholecystectomy. The patient also had ERCP by Dr. Ma today showed normal cholelithiasis, suspected filling defects in the CBD was noted and sphincterotomy with a 8.5 mm balloon catheter and withdrawing it fully inflated across the sphincterotomy site was performed. The patient being closely monitored. Left is still elevated. Past medical history reviewed. REVIEW OF SYSTEMS: CARDIOVASCULAR: No angina or palpitation as mentioned earlier. RESPIRATORY: No cough. GI: As mentioned earlier. : No dysuria. Current medications are reviewed and include: 1. Tylenol 650 q.4. 2. Unasyn 3 grams IV q.8. 3. Aspirin 320 mg daily. 4. Lipitor 20 mg q.h.s. 5. Dilaudid 1 mg q.4. 6. Morphine sulfate. 7. Nitrostat 0.4 p.r.n. 8. Zofran 4 mg q.6 p.r.n. PHYSICAL EXAMINATION: The patient is alert and oriented x3. Pulse 96, blood pressure 101/52, respirations 18, temperature 98.4, pulse ox 97% on room air. HEENT: Conjunctivae normal. NECK: No jugular venous distention. CARDIOVASCULAR: S1, S2 muffled. RESPIRATORY: Breath sounds diminished at the bases. No rhonchi, no crackles. ABDOMEN: Soft. Mild diffuse discomfort on palpation. No guarding. No rigidity. No mass palpable. LEGS: No edema. No swelling. CENTRAL NERVOUS SYSTEM: No focal deficits. LABS: WBC 9.2, LFTs are total bilirubin 7.5. AST is 248 and ALT is 402. ASSESSMENT: 1. Abdominal discomfort, possible acute cholecystitis. 2. Choledocholithiasis with elevated bilirubin and AST, ALT, alkaline phosphatase status post ERCP and sphincterotomy. 3. Increased random blood sugar. 4. Increased white blood count present on admission. 5. History of gastroesophageal reflux disease. 6. Hypertension. 7. History of chronic liver disease. 9. Chronic back pain. 10. History of hepatitis C treated. 11. Normal cardiac catheterization in 2006. RECOMMENDATIONS AND DISCUSSION: In this 46-year-old gentleman who presented with multiple complex medical issues, at this time, I recommend to continue current medications and continue symptomatic treatment. Otherwise ERCP has been noted. We will recommend to continue the current medications. DVT prophylaxis. Otherwise, I would also recommend monitor LFTs closely. Closely follow with surgery. Further recommendations to follow. See orders for further details. Discussed with the patient's family. LUDIVINA
[2016-10-19] MEDS: ATORVASTATIN 20 MG TAB PO SCH (22:26)
[2016-10-20] MEDS: AMPICILLIN-SULBACTAM 3 GM in SODIUM CHLORIDE 0.9% 100 ML IVPB SCH ×4 (00:43→23:52)
[2016-10-20] MEDS: ONDANSETRON 4 MG/2 ML VIAL IVP SCH ×5 (00:48→23:52)
[2016-10-20] MEDS: HYDROmorphone 1 MG/ML 1 ML SYRINGE IVP PRN ×7 (02:57→23:52)
[2016-10-20 07:25] LABS: Basophils % (A) 0 %; CH 31.1; CHCM 34.2; Eosinophils # (A) 0.1 k/uL (0-0.7); Eosinophils % (A) 1 %; HCT 42.7 % (39.0-53.0); HDW 3.45; HGB 14.3 gm/dL (13.0-17.5); Luc # (Auto) 0.13; Luc % (Auto) 1; Lymphocytes # (A) 1.4 k/uL (1.0-4.8); Lymphocytes % (A) 11 %; MCH 30.6 pg (25.0-35.0); MCHC 33.5 g/dL (31.0-37.0); MCV 91.5 fL (80.0-100.0); Mean Platelet Volume 7.4; Monocytes # (A) 0.7 k/uL (0-1.0); Monocytes % (A) 5 %; Neutrophils # (A) 11.2 k/uL (1.3-7.7); Neutrophils % (A) 83 %; Poikilocytosis Slight; RBC 4.67 m/uL (4.30-5.90); RDW 12.8 % (11.5-15.5); WBC 13.5 k/uL (3.8-10.6); WBC (Perox) 13.83
[2016-10-20 07:35] LABS: ALT 232 U/L (21-72); AST 90 U/L (17-59); Alkaline Phosphatase 152 U/L (38-126); Anion Gap 10 mmol/L; Blood Urea Nitrogen 9 mg/dL (9-20); Calcium 8.7 mg/dL (8.4-10.2); Carbon Dioxide 26 mmol/L (22-30); Chloride 109 mmol/L (98-107); Glucose 100 mg/dL (74-99); Non-African American GFR(MDRD) >60 (>60 ml/min/1.73 sqM); Potassium 3.9 mmol/L (3.5-5.1); Sodium 145 mmol/L (137-145); Total Bilirubin 5.6 mg/dL (0.2-1.3); Total Protein 6.1 g/dL (6.3-8.2)
[2016-10-20] MEDS: ASPIRIN 325 MG TAB PO SCH (08:12)
[2016-10-20 11:43] LABS: Amylase 1407 U/L (30-110)
--- NOTE | 2016-10-20 14:46 | P.PN ---
Subjective Principal diagnosis: Choledocholithiasis The patient is a 46-year-old gentleman who presented with choledocholithiasis as well as jaundice. He had an ERCP yesterday and this morning reports epigastric discomfort. His chemistries are consistent with acute pancreatitis following his ERCP. He still jaundiced this morning. Objective - Vital Signs Vital signs: Vital Signs Temp 98.2 F 10/20/16 14:36 Pulse 95 10/20/16 14:36 Resp 16 10/20/16 07:00 BP 124/69 10/20/16 14:36 Pulse Ox 95 10/20/16 14:36 Intake & Output 10/19/16 10/20/16 10/20/16 18:59 06:59 18:59 Intake Total 450 100 Balance 450 100 Intake: IV 450 100 Ampicillin-Sulbactam 3 gm 100 In Sodium Chloride 0.9% 100 ml @ 100 mls/hr IVPB Q8HR [facility] Rx#:[id number] Other: Voiding Method Toilet # Voids 1 3 - Exam GENERAL: Well developed and in no acute distress. Pleasant. HEENT: Has sclera icterus. Extraocular movements grossly intact. Moist buccal mucosa. Head is atraumatic, normocephalic. Hears conversational speech. No nasal drainage. NECK: Supple without lymphadenopathy. No JV distention. CHEST: Non-labored respirations and equal bilateral excursions. CARDIOVASCULAR: Regular rate and rhythm. Palpable 2+ radial pulses. ABDOMEN: Soft, tenderness along the epigastrium. No peritonitis. MUSCULOSKELETAL: No clubbing, cyanosis or edema. NEUROLOGIC: No focal or lateralizing signs. PSYCH: Appropriate affect. Alert and oriented to person, place and time. - Labs CBC & Chem 7: 10/20/16 07:02 10/20/16 07:02 Labs: Abnormal Lab Results - Last 24 Hours (Table) 10/20/16 10/20/16 10/20/16 Range/Units 07:02 07:02 07:02 WBC 13.5 H (3.8-10.6) k/uL Neutrophils # 11.2 H (1.3-7.7) k/uL Chloride 109 H (98-107) mmol/L Glucose 100 H (74-99) mg/dL Total Bilirubin 5.6 H (0.2-1.3) mg/dL AST 90 H (17-59) U/L ALT 232 H (21-72) U/L Alkaline Phosphatase 152 H (38-126) U/L Total Protein 6.1 L (6.3-8.2) g/dL Amylase 1407 H* (30-110) U/L Lipase 67559 H (23-300) U/L Assessment and Plan (1) Choledocholithiasis with acute cholecystitis Status: Acute (2) Epigastric pain Status: Acute (3) Family history of gallbladder disease Status: Acute (4) Hepatitis C virus carrier state Status: Acute (5) Hyperlipidemia Status: Acute (6) Right upper quadrant abdominal pain Status: Acute (7) Acute pancreatitis due to calculus of common bile duct Status: Acute (8) S/P ERCP Status: Acute (9) Gallstone of bile duct with gallbladder inflammation and obstruction Status: Acute Plan: 1. After his ERCP, his pancreatic enzymes are not elevated. His laparoscopic cholecystectomy as delayed pending resolution of his pancreatitis and jaundice. 2. Agree with nothing by mouth at this time. 3. Recommend daily chemistries including amylase lipase. 4. Tentative laparoscopic cholecystectomy for Friday morning.
[2016-10-20] MEDS: SODIUM CHLORIDE 0.9% 1,000 ML IV SCH ×2 (15:18→19:59)
--- NOTE | 2016-10-20 16:46 | PN ---
DATE OF SERVICE: 10/20/2016 This 46-year-old gentleman admitted with significant chest pain, abdominal pain, was found to have cholelithiasis. Because of suspicion of choledocholithiasis and elevated LFTs the patient underwent ERCP as well as sphincterotomy yesterday. Today the patient complaining of abdominal pain, which is rather new. Anterior part of chest, which is radiating across like a band. PAST MEDICAL HISTORY: Reviewed. REVIEW OF SYSTEMS: CARDIOVASCULAR: No angina. RESPIRATORY: As mentioned earlier. GI: No nausea. : No dysuria. NERVOUS SYSTEM: No numbness or weakness. Current medications are reviewed and include: 1. Tylenol 650 q.6 q.4 p.r.n. 2. Unasyn 3 grams q.8. 3. Lipitor 20 mg daily. 4. Dilaudid. 5. Morphine. 6. Nitrostat. 7. Zofran. PHYSICAL EXAMINATION: The patient is alert and oriented x3. Pulse 92, blood pressure 124/70, respirations 16, temperature 98.4, pulse ox 92% on room air. HEENT: Conjunctivae normal. NECK: No jugular venous distention. CARDIOVASCULAR: S1 and S2, muffled. RESPIRATORY: Breath sounds diminished at the bases. No rhonchi, no crackles. ABDOMEN: Soft, mild diffuse discomfort on palpation. No guarding, no rigidity. No mass palpable. LEGS: No edema, no swelling. NERVOUS SYSTEM: Higher function as mentioned. Moves all four limbs. No focal motor deficits. LYMPHATIC: No lymphadenopathy in the neck, axillae or groin. SKIN: No ulcer, rash or bleeding. LABS: WBC 13.5, total bilirubin is 5.6, AST is 90, amylase 1407, lipase is 1402. ASSESSMENT: 1. Abdominal discomfort, possible acute cholecystitis present on admission. 2. Choledocholithiasis with elevated bilirubin, AST, ALT, alkaline phosphatase and status post endoscopic retrograde cholangiopancreatography and sphincterotomy. 3. Abdominal pain with elevated amylase, lipase secondary to pancreatitis rather than secondary to procedure, post ERCP. 4. Increased random blood sugar. 5. Increased WBC present on admission. 6. History of gastroesophageal reflux disease. 7. Hypertension. 8. History of chronic liver disease. 9. History of chronic back pain. 10. History of hepatitis C, treated. 11. Normal cardiac catheterization 2006. RECOMMENDATIONS AND DISCUSSION: In this 46-year-old gentleman who presented with multiple complex medical issues, at this time will monitor the patient closely. Continue the current medications. Continue symptomatic treatment. Otherwise, repeat labs. The patient is also started on IV Unasyn. Closely follow with Surgery and Gastroenterology. Will continue to monitor amylase and lipase as well. Guarded prognosis. Further recommendations to follow.
[2016-10-20] MEDS: PANTOPRAZOLE 40 MG/10 ML VIAL IVP SCH (17:08)
[2016-10-21] MEDS: SODIUM CHLORIDE 0.9% 1,000 ML IV SCH ×3 (04:04→21:30)
[2016-10-21] MEDS: HYDROmorphone 1 MG/ML 1 ML SYRINGE IVP PRN (06:16)
[2016-10-21] MEDS: ONDANSETRON 4 MG/2 ML VIAL IVP SCH ×3 (06:16→17:08)
[2016-10-21 07:20] LABS: Basophils % (A) 0 %; CH 31.3; CHCM 34.4; Eosinophils # (A) 0.1 k/uL (0-0.7); Eosinophils % (A) 1 %; HCT 43.5 % (39.0-53.0); HDW 3.44; HGB 14.5 gm/dL (13.0-17.5); Luc # (Auto) 0.14; Luc % (Auto) 1; Lymphocytes # (A) 1.4 k/uL (1.0-4.8); Lymphocytes % (A) 13 %; MCH 30.5 pg (25.0-35.0); MCHC 33.3 g/dL (31.0-37.0); MCV 91.7 fL (80.0-100.0); Mean Platelet Volume 7.2; Monocytes # (A) 0.5 k/uL (0-1.0); Monocytes % (A) 5 %; Neutrophils # (A) 8.3 k/uL (1.3-7.7); Neutrophils % (A) 80 %; Poikilocytosis Slight; RBC 4.74 m/uL (4.30-5.90); RDW 12.9 % (11.5-15.5); WBC 10.4 k/uL (3.8-10.6); WBC (Perox) 10.17
[2016-10-21 07:44] LABS: ALT 155 U/L (21-72); AST 46 U/L (17-59); Alkaline Phosphatase 146 U/L (38-126); Amylase 184 U/L (30-110); Anion Gap 15 mmol/L; Blood Urea Nitrogen 8 mg/dL (9-20); Carbon Dioxide 22 mmol/L (22-30); Chloride 106 mmol/L (98-107); Glucose 75 mg/dL (74-99); Non-African American GFR(MDRD) >60 (>60 ml/min/1.73 sqM); Potassium 3.9 mmol/L (3.5-5.1); Sodium 143 mmol/L (137-145); Total Bilirubin 2.4 mg/dL (0.2-1.3); Total Protein 6.4 g/dL (6.3-8.2)
[2016-10-21] MEDS: AMPICILLIN-SULBACTAM 3 GM in SODIUM CHLORIDE 0.9% 100 ML IVPB SCH ×2 (08:03→17:08)
[2016-10-21] MEDS: PANTOPRAZOLE 40 MG/10 ML VIAL IVP SCH (08:03)
--- NOTE | 2016-10-21 10:38 | P.PN ---
Subjective 46-year-old being seen in follow-up surgical visit who is status post ERCP done on October 19. Patient states epigastric discomfort has improved. Patient's initial presentation epigastric pain felt to be due to cholelithiasis with jaundice. Following his ERCP chemistries were consistent with acute pancreatitis the labs this morning total bilirubin is down to 2.4 on admission 7.5. ALT 155 AST 46. "Anxious to start a diet even clear liquids sound good. Patient currently is nothing by mouth with IV fluid hydration Objective - Vital Signs Vital signs: Vital Signs Temp 98.5 F 10/21/16 07:00 Pulse 80 10/21/16 07:00 Resp 14 10/21/16 07:00 BP 123/78 10/21/16 07:00 Pulse Ox 98 10/21/16 07:00 Intake & Output 10/20/16 10/21/16 10/21/16 18:59 06:59 18:59 Intake Total 875 1225 Balance 875 1225 Intake: IV 875 1225 Ampicillin-Sulbactam 3 gm 100 100 In Sodium Chloride 0.9% 100 ml @ 100 mls/hr IVPB Q8HR [facility] Rx#:[id number] Sodium Chloride 0.9% 1, 775 1125 000 ml @ 125 mls/hr IV . Q8H [facility] Rx#:[id number] Other: Voiding Method Toilet Toilet # Voids 3 - Exam GENERAL APPEARANCE: 46-year-old male patient is alert, oriented, in no acute distress. VITAL SIGNS: Reviewed HEENT: Head is normocephalic and atraumatic. Pupils are equal and reactive. The nares are patent. Oropharynx is clear without lesions. NECK: Supple without lymphadenopathy. Traches midline. HEART: S1, S2. Regular rate and rhythm. No murmur noted denying chest pain LUNGS: No crackles or wheezes are heard. Adequate air movement on room air no shortness of breath no cough ABDOMEN: Soft, slight epigastric tenderness no stool denying any nausea vomiting nondistended with good bowel sounds. No peritoneal signs. No palpable organomegaly or masses. EXTREMITIES: Normal skin color and turgor. No cyanosis, rash, ulceration, clubbing or edema. Radial pedal pulses are 2/4 bilaterally. NEUROLOGICAL: No focal deficits. Strength and sensation are grossly intact. - Labs CBC & Chem 7: 10/21/16 06:45 10/21/16 06:45 Labs: Abnormal Lab Results - Last 24 Hours (Table) 10/20/16 10/21/16 10/21/16 Range/Units 07:02 06:45 06:45 Neutrophils # 8.3 H (1.3-7.7) k/uL BUN 8 L (9-20) mg/dL Total Bilirubin 2.4 H (0.2-1.3) mg/dL ALT 155 H (21-72) U/L Alkaline Phosphatase 146 H (38-126) U/L Amylase 1407 H* 184 H (30-110) U/L Lipase 92717 H 635 H (23-300) U/L Assessment and Plan Plan: Impression (1) Choledocholithiasis with acute cholecystitis Status: Acute (2) Epigastric pain Status: Acute (3) Family history of gallbladder disease Status: Acute (4) Hepatitis C virus carrier state Status: Acute (5) Hyperlipidemia Status: Acute (6) Right upper quadrant abdominal pain Status: Acute (7) Acute pancreatitis due to calculus of common bile duct Status: Acute (8) S/P ERCP Status: Acute (9) Gallstone of bile duct with gallbladder inflammation and obstruction Status: Acute Plan Tentatively scheduled for laparoscopic cholecystectomy for FridayOctober 23 Pain control Continue IV fluid for hydration Continue IV Unasyn as ordered start ice chips with popsicle at noon evaluate response Repeat labs in the morning The above dictated assessment and findings were discussed with dr Jd Webb Impression and the plan of care have been dictated as directed. Maria Isabel Ward nurse practitioner acting as a scribe for Dr. Webb
[2016-10-21] MEDS: ACETAMINOPHEN TAB 325 MG TAB PO PRN ×2 (11:45→21:30)
--- NOTE | 2016-10-21 16:54 | PN ---
DATE OF SERVICE: 10/21/2016 This 46-year-old gentleman who was admitted with abdominal discomfort and acute cholecystitis also had post-ERCP pancreatitis. The patient has some minimal abdominal pain currently which is improved from yesterday. Amylase and lipase are improving. LFTs are overall improving. Also Dr. Gutierrez is planning a laparoscopic cholecystectomy. No chest pain. No palpitation. No fever. No shortness of breath. On exam, alert and oriented x3. Pulse is 80, blood pressure 123/78, respiration 14, temperature 98.5, pulse ox 98% on room air. HEENT: Conjunctivae normal. NECK: No jugular venous distention. CARDIOVASCULAR SYSTEM: S1, S2 muffled. RESPIRATORY SYSTEM: Breath sounds diminished at the bases. A few rhonchi. No crackles. ABDOMEN: Soft. Mild diffuse discomfort. Otherwise, no guarding, no rigidity, no mass palpable. LEGS: No edema. No swelling. NERVOUS SYSTEM: No focal deficit. LABS: WBC 10.4. Bilirubin has improved, 2.4. Amylase improved to 184 and lipase is 635. ASSESSMENT: 1. Abdominal pain, possible acute cholecystitis, present on admission. 2. Choledocholithiasis and elevated bilirubin, AST, ALT, alkaline phosphatase and status post ERCP and sphincterectomy. 3. Abdominal pain with elevated amylase and lipase secondary to post ERCP pancreatitis possibly. 4. Increased random blood sugar. 5. Increased white count, present on admission. 6. History of gastroesophageal reflux disease. 7. Hypertension. 8. History of chronic liver disease. 9. History of chronic back pain. 10. History of hepatitis C, treated. 11. Normal cardiac catheterization in 2017. 12. FULL CODE. RECOMMENDATIONS AND DISCUSSION: In this 46-year-old gentleman who presented with multiple complex medical issues, we will monitor the patient closely, repeat labs, continue the current medications. Closely follow with Dr. Gutierrez for possible surgery. Further recommendations to follow.
[2016-10-22] MEDS: ONDANSETRON 4 MG/2 ML VIAL IVP SCH ×5 (00:40→23:51)
[2016-10-22] MEDS: AMPICILLIN-SULBACTAM 3 GM in SODIUM CHLORIDE 0.9% 100 ML IVPB SCH ×4 (00:40→23:49)
[2016-10-22] MEDS: HYDROmorphone 1 MG/ML 1 ML SYRINGE IVP PRN ×5 (00:40→23:52)
[2016-10-22] MEDS: SODIUM CHLORIDE 0.9% 1,000 ML IV SCH ×3 (05:25→21:29)
[2016-10-22] MEDS: ACETAMINOPHEN TAB 325 MG TAB PO PRN (05:27)
[2016-10-22 07:38] LABS: Basophils % (A) 0 %; CH 31.2; CHCM 35.8; Eosinophils # (A) 0.1 k/uL (0-0.7); Eosinophils % (A) 1 %; HCT 39.7 % (39.0-53.0); HDW 3.58; HGB 13.8 gm/dL (13.0-17.5); Luc # (Auto) 0.16; Luc % (Auto) 2; Lymphocytes # (A) 1.4 k/uL (1.0-4.8); Lymphocytes % (A) 15 %; MCH 30.5 pg (25.0-35.0); MCHC 34.8 g/dL (31.0-37.0); MCV 87.7 fL (80.0-100.0); Mean Platelet Volume 7.4; Monocytes # (A) 0.6 k/uL (0-1.0); Monocytes % (A) 6 %; Neutrophils # (A) 7.1 k/uL (1.3-7.7); Neutrophils % (A) 76 %; Poikilocytosis Slight; RBC 4.53 m/uL (4.30-5.90); WBC 9.4 k/uL (3.8-10.6); WBC (Perox) 9.93
--- NOTE | 2016-10-22 07:40 | P.PN ---
Progress Note - Text Patient seen and evaluated. Jaundice moderately improving. Surgical intervention pending normalization of chemistries.
[2016-10-22 08:00] LABS: ALT 109 U/L (21-72); AST 29 U/L (17-59); Alkaline Phosphatase 128 U/L (38-126); Amylase 58 U/L (30-110); Anion Gap 12 mmol/L; Blood Urea Nitrogen 6 mg/dL (9-20); Calcium 8.8 mg/dL (8.4-10.2); Carbon Dioxide 25 mmol/L (22-30); Chloride 107 mmol/L (98-107); Glucose 91 mg/dL (74-99); Non-African American GFR(MDRD) >60 (>60 ml/min/1.73 sqM); Potassium 3.8 mmol/L (3.5-5.1); Sodium 144 mmol/L (137-145); Total Bilirubin 1.7 mg/dL (0.2-1.3); Total Protein 6.2 g/dL (6.3-8.2)
[2016-10-22] MEDS: PANTOPRAZOLE 40 MG/10 ML VIAL IVP SCH (10:13)
[2016-10-22 12:31] LABS: Basophils % (A) 0 %; CH 31.1; CHCM 35.4; Eosinophils # (A) 0.1 k/uL (0-0.7); Eosinophils % (A) 1 %; HCT 43.4 % (39.0-53.0); HDW 3.59; HGB 15.1 gm/dL (13.0-17.5); Luc # (Auto) 0.16; Luc % (Auto) 2; Lymphocytes # (A) 1.8 k/uL (1.0-4.8); Lymphocytes % (A) 19 %; MCH 30.9 pg (25.0-35.0); MCHC 34.9 g/dL (31.0-37.0); MCV 88.5 fL (80.0-100.0); Mean Platelet Volume 7.4; Monocytes # (A) 0.6 k/uL (0-1.0); Monocytes % (A) 6 %; Neutrophils # (A) 6.8 k/uL (1.3-7.7); Neutrophils % (A) 72 %; Poikilocytosis Slight; RDW 13.1 % (11.5-15.5); WBC 9.4 k/uL (3.8-10.6); WBC (Perox) 9.34
[2016-10-22 12:55] LABS: ALT 116 U/L (21-72); AST 31 U/L (17-59); Alkaline Phosphatase 146 U/L (38-126); Anion Gap 14 mmol/L; Blood Urea Nitrogen 5 mg/dL (9-20); Calcium 9.4 mg/dL (8.4-10.2); Carbon Dioxide 26 mmol/L (22-30); Chloride 107 mmol/L (98-107); Glucose 85 mg/dL (74-99); Non-African American GFR(MDRD) >60 (>60 ml/min/1.73 sqM); Potassium 4.2 mmol/L (3.5-5.1); Sodium 147 mmol/L (137-145); Total Bilirubin 1.8 mg/dL (0.2-1.3)
--- NOTE | 2016-10-22 16:09 | P.PN ---
Subjective 46-year-old being seen in follow-up surgical visit who is status post ERCP done on October 19. Patient states the abdominal discomfort continues to persist did attempt to advance diet did not tolerate stated after eating had bloating with abdominal pain right upper quadrant radiating to epigastric area states passing gas no stool Repeat labs this morning total bili 1.8 AST 31 ALT 116 the amylase is down to 58 and lipase is down to 179 Patient's initial presentation epigastric pain felt to be due to cholelithiasis with jaundice. Following his ERCP chemistries were consistent with acute pancreatitis the labs this morning total bilirubin is down to 2.4 on admission 7.5. ALT 155 AST 46. Objective - Vital Signs Vital signs: Vital Signs Temp 96.5 F L 10/22/16 14:02 Pulse 88 10/22/16 14:02 Resp 16 10/22/16 14:02 BP 139/89 10/22/16 14:02 Pulse Ox 96 10/22/16 14:02 Intake & Output 10/21/16 10/22/16 10/22/16 18:59 06:59 18:59 Intake Total 2020 1225 Balance 2020 1225 Intake: IV 1100 1225 Ampicillin-Sulbactam 3 gm 100 100 In Sodium Chloride 0.9% 100 ml @ 100 mls/hr IVPB Q8HR [facility] Rx#:[id number] Sodium Chloride 0.9% 1, 1000 1125 000 ml @ 125 mls/hr IV . Q8H [facility] Rx#:[id number] Intake, IV Titration 120 Amount Ampicillin-Sulbactam 3 gm 120 In Sodium Chloride 0.9% 100 ml @ 100 mls/hr IVPB Q8HR [facility] Rx#:[id number] Oral 800 Other: Voiding Method Toilet Toilet # Voids 1 3 - Exam Physical exam 46-year-old male stating continues to have epigastric pain radiates to the right upper quadrant of the abdomen with a sensation of nausea Lungs essentially clear adequate air movement Heart S1-S2 audible regular Abdomen soft slight tenderness to the epigastric area not distended bowel tones active Extremities no edema - Labs CBC & Chem 7: 10/22/16 12:09 10/22/16 12:09 Labs: Abnormal Lab Results - Last 24 Hours (Table) 10/22/16 10/22/16 Range/Units 07:18 12:09 Sodium 147 H (137-145) mmol/L BUN 6 L 5 L (9-20) mg/dL Total Bilirubin 1.7 H 1.8 H (0.2-1.3) mg/dL ALT 109 H 116 H (21-72) U/L Alkaline Phosphatase 128 H 146 H (38-126) U/L Total Protein 6.2 L (6.3-8.2) g/dL Assessment and Plan Plan: Impression (1) Choledocholithiasis with acute cholecystitis Status: Acute (2) Epigastric pain Status: Acute (3) Family history of gallbladder disease Status: Acute (4) Hepatitis C virus carrier state Status: Acute (5) Hyperlipidemia Status: Acute (6) Right upper quadrant abdominal pain Status: Acute (7) Acute pancreatitis due to calculus of common bile duct Status: Acute (8) S/P ERCP Status: Acute (9) Gallstone of bile duct with gallbladder inflammation and obstruction Status: Acute Plan Tentatively scheduled for laparoscopic cholecystectomy for October 24 Pain control Continue IV fluid for hydration Continue IV Unasyn as ordered keep on clear liquid diet Repeat labs in the morning The above dictated assessment and findings were discussed with dr Jd Webb Impression and the plan of care have been dictated as directed. Maria Isabel Ward nurse practitioner acting as a scribe for Dr. Webb
--- NOTE | 2016-10-22 17:09 | PN ---
DATE OF SERVICE: 10/22/2016 This 46-year-old gentleman who was admitted with abdominal pain, possible acute cholecystitis also had positive ERCP pancreatitis. The patient the LFTs are improving at this time. Dr. Gutierrez is planning the patient to be discharged home and perform cholecystectomy as an outpatient procedure. No chest pain or palpitation. No fever. On exam, alert and oriented x3. Pulse is 80, blood pressure 137/85, respirations 16, temperature 98.1, pulse ox 98% on room air. HEENT: Conjunctivae normal. NECK: No jugular venous distension. CARDIOVASCULAR: S1 and S2 muffled. RESPIRATORY: Breath sounds diminished in the bases. ABDOMEN: Soft, nontender. No mass palpable. No hepatosplenomegaly. LEGS: No edema. No swelling. NERVOUS SYSTEM: Nonfocal. LABS: CBC within normal limits. Otherwise, total bilirubin is 1.8, ALT is 116 and alk phos 116. Amylase, lipase normal. ASSESSMENT: 1. Abdominal pain, possible acute cholecystitis, present on admission. 2. Choledocholithiasis, elevated bilirubin, AST, ALT, alkaline phosphatase, status post endoscopic retrograde cholangiopancreatography and sphincterotomy. 3. Abdominal pain and elevated amylase, lipase secondary to post endoscopic retrograde cholangiopancreatography pancreatitis, possibly improving. 4. Increased random blood sugar. 5. Increased WBC, present on admission. 6. History of gastroesophageal reflux disease. 7. Hypertension. 8. History of chronic liver disease. 9. History of chronic back pain. 10. History of hepatitis C, treated. 11. Normal cardiac catheterization in 2017. 12. FULL CODE. RECOMMENDATIONS AND DISCUSSION: In this 46-year-old gentleman who presented with multiple complex medical issues, I would recommend continuing current medications and continuing symptomatic treatment. I would recommend resuming the home medication, follow up labs with the primary physician, Dr. Smith and otherwise rest of the recommendations per Surgery. Further recommendations to follow.
[2016-10-22] MEDS: HEPARIN SODIUM,PORCINE 5,000 UNIT/ML 1 ML VIAL SQ SCH (23:49)
[2016-10-23 01:46] LABS: Basophils % (A) 0 %; CH 31.4; CHCM 34.8; Eosinophils % (A) 0 %; HCT 36.9 % (39.0-53.0); HDW 3.68; HGB 12.6 gm/dL (13.0-17.5); Luc # (Auto) 0.12; Luc % (Auto) 1; Lymphocytes % (A) 8 %; MCH 31.1 pg (25.0-35.0); MCHC 34.3 g/dL (31.0-37.0); MCV 90.9 fL (80.0-100.0); Mean Platelet Volume 7.5; Monocytes # (A) 0.4 k/uL (0-1.0); Monocytes % (A) 3 %; Neutrophils # (A) 11.7 k/uL (1.3-7.7); Neutrophils % (A) 88 %; Poikilocytosis Slight; RBC 4.06 m/uL (4.30-5.90); RDW 13.4 % (11.5-15.5); WBC 13.2 k/uL (3.8-10.6); WBC (Perox) 14.03
[2016-10-23 01:58] LABS: Prothrombin Time 10.4 sec (9.0-12.0)
[2016-10-23 01:59] LABS: ALT 193 U/L (21-72); AST 191 U/L (17-59); Alkaline Phosphatase 302 U/L (38-126); Anion Gap 13 mmol/L; Blood Urea Nitrogen 10 mg/dL (9-20); Calcium 8.6 mg/dL (8.4-10.2); Carbon Dioxide 24 mmol/L (22-30); Chloride 107 mmol/L (98-107); Glucose 160 mg/dL (74-99); Magnesium 1.8 mg/dL (1.6-2.3); Non-African American GFR(MDRD) >60 (>60 ml/min/1.73 sqM); Phosphorous 4.1 mg/dL (2.5-4.5); Potassium 3.9 mmol/L (3.5-5.1); Sodium 144 mmol/L (137-145); Total Bilirubin 3.9 mg/dL (0.2-1.3); Total Protein 5.7 g/dL (6.3-8.2)
[2016-10-23] MEDS ORDERED: LACTATED RINGERS 1,000 ML IV SCH (02:37)
[2016-10-23] MEDS ORDERED: MIDAZOLAM 2 MG/2 ML VIAL IV PRN (02:37)
[2016-10-23] MEDS: SODIUM CHLORIDE 0.9% 1,000 ML IV SCH ×3 (06:51→23:03)
[2016-10-23] MEDS: ONDANSETRON 4 MG/2 ML VIAL IVP SCH ×3 (06:53→17:41)
[2016-10-23] MEDS: PANTOPRAZOLE 40 MG/10 ML VIAL IVP SCH ×2 (08:13→23:03)
[2016-10-23] MEDS: AMPICILLIN-SULBACTAM 3 GM in SODIUM CHLORIDE 0.9% 100 ML IVPB SCH ×2 (08:13→16:45)
[2016-10-23 08:14] LABS: Basophils % (A) 0 %; CH 31.1; CHCM 34.6; Eosinophils % (A) 0 %; HCT 33.9 % (39.0-53.0); HDW 3.68; HGB 11.6 gm/dL (13.0-17.5); Luc # (Auto) 0.16; Luc % (Auto) 2; Lymphocytes # (A) 1.8 k/uL (1.0-4.8); Lymphocytes % (A) 19 %; MCHC 34.2 g/dL (31.0-37.0); MCV 90.7 fL (80.0-100.0); Mean Platelet Volume 7.9; Monocytes # (A) 0.6 k/uL (0-1.0); Monocytes % (A) 6 %; Neutrophils # (A) 7.3 k/uL (1.3-7.7); Neutrophils % (A) 74 %; Poikilocytosis Slight; RBC 3.74 m/uL (4.30-5.90); RDW 13.7 % (11.5-15.5); WBC 9.9 k/uL (3.8-10.6); WBC (Perox) 10.55
[2016-10-23 08:23] LABS: ALT 259 U/L (21-72); AST 296 U/L (17-59); Alkaline Phosphatase 282 U/L (38-126); Amylase 49 U/L (30-110); Anion Gap 13 mmol/L; Blood Urea Nitrogen 12 mg/dL (9-20); Calcium 8.7 mg/dL (8.4-10.2); Carbon Dioxide 25 mmol/L (22-30); Chloride 107 mmol/L (98-107); Glucose 111 mg/dL (74-99); Non-African American GFR(MDRD) >60 (>60 ml/min/1.73 sqM); Sodium 145 mmol/L (137-145); Total Bilirubin 3.3 mg/dL (0.2-1.3); Total Protein 5.7 g/dL (6.3-8.2)
[2016-10-23] MEDS: HYDROmorphone 1 MG/ML 1 ML SYRINGE IVP PRN ×2 (09:21→18:56)
--- NOTE | 2016-10-23 09:40 | P.PN ---
Subjective 46-year-old gentleman being seen in the intensive care unit this morning events noted during the night patient had an episode 3 maroon-colored stools with a drop in hemoglobin with epigastric discomfort necessitating the need to be transferred from the surgical unit to the ICU for close monitoring. Patient states "I felt fine yesterday seem to occur around 7 at night started having some epigastric discomfort with cramping then had several bloody stools. Currently this morning the hemoglobin is 11.6 Hospital course this is a 46-year-old who initially presented to the emergency room with epigastric pain with jaundice. . Patient stated the pain was so severe in the epigastric area woke him up. Patient stated he came into the emergency room. Patient initially was scheduled to have a cholecystectomy done on October 19 however bilirubin reached 7.5 and a HIDA scan showed a complete absence the markers in the intestine. Patient was seen by Dr. Bowens GI service and the patient did undergo an ERCP. On October 19 Endoscopic retrograde cholangiopancreatography ERCP, with sphincterotomy and passing of the 8.5 mm balloon catheter fully inflated across the sphincterotomy site.Postoperative diagnosis: Normal papilla and pancreatic duct. Cholelithiasis and suspected filling defects in the common bile duct, S/P sphincterotomy with the passing of the 8.5 mm balloon catheter and withdrawing it fully inflated across the sphincterotomy site. After the ERCP patient was maintained on IV hydration monitored closely and tentatively was scheduled to be undergo a lap cholecystectomy this week by surgical service Objective - Vital Signs Vital signs: Vital Signs Temp 98.3 F 10/23/16 08:00 Pulse 103 H 10/23/16 09:00 Resp 15 10/23/16 09:00 BP 116/78 10/23/16 09:00 Pulse Ox 98 10/23/16 09:00 Intake & Output 10/22/16 10/23/16 10/23/16 18:59 06:59 18:59 Intake Total 1475 625 475 Output Total 3 Balance 1475 625 472 Intake: IV 975 625 475 Ampicillin-Sulbactam 3 gm 100 100 In Sodium Chloride 0.9% 100 ml @ 100 mls/hr IVPB Q8HR [facility] Rx#:[id number] Sodium Chloride 0.9% 1, 875 625 375 000 ml @ 125 mls/hr IV . Q8H [facility] Rx#:[id number] Oral 500 Output: Stool 3 Other: Voiding Method Urinal Toilet # Voids 1 1 # Bowel Movements 1 - Exam Physical exam 46-year-old male sitting up in bed denying chest pain dizziness lightheadedness or shortness of breath Lungs essentially clear with adequate air movement on room air sats are documented 98% Heart S1-S2 audible regular heart rate in the 90s sinus rhythm on the monitor denying chest pain Abdomen soft no facial grimacing with palpitation to the abdominal wall bowel tones present no rebound not distended currently no stool Extremities no edema noted - Labs CBC & Chem 7: 10/23/16 07:45 10/23/16 07:45 Labs: Abnormal Lab Results - Last 24 Hours (Table) 10/22/16 10/23/16 10/23/16 Range/Units 12:09 01:36 01:36 WBC 13.2 H (3.8-10.6) k/uL RBC 4.06 L (4.30-5.90) m/uL Hgb 12.6 L (13.0-17.5) gm/dL Hct 36.9 L (39.0-53.0) % Neutrophils # 11.7 H (1.3-7.7) k/uL Sodium 147 H (137-145) mmol/L BUN 5 L (9-20) mg/dL Glucose 160 H (74-99) mg/dL Total Bilirubin 1.8 H 3.9 H (0.2-1.3) mg/dL AST 191 H (17-59) U/L ALT 116 H 193 H (21-72) U/L Alkaline Phosphatase 146 H 302 H (38-126) U/L Total Protein 5.7 L (6.3-8.2) g/dL Albumin 3.3 L (3.5-5.0) g/dL 10/23/16 10/23/16 Range/Units 07:45 07:45 WBC (3.8-10.6) k/uL RBC 3.74 L (4.30-5.90) m/uL Hgb 11.6 L (13.0-17.5) gm/dL Hct 33.9 L (39.0-53.0) % Neutrophils # (1.3-7.7) k/uL Sodium (137-145) mmol/L BUN (9-20) mg/dL Glucose 111 H (74-99) mg/dL Total Bilirubin 3.3 H (0.2-1.3) mg/dL AST 296 H (17-59) U/L ALT 259 H (21-72) U/L Alkaline Phosphatase 282 H (38-126) U/L Total Protein 5.7 L (6.3-8.2) g/dL Albumin 3.3 L (3.5-5.0) g/dL Assessment and Plan Plan: Impression (1) Choledocholithiasis with acute cholecystitis Status: Acute (2) Epigastric pain Status: Acute (3) Family history of gallbladder disease Status: Acute (4) Hepatitis C virus carrier state Status: Acute (5) Hyperlipidemia Status: Acute (6) Right upper quadrant abdominal pain Status: Acute (7) Acute pancreatitis due to calculus of common bile duct Status: Acute (8) S/P ERCP Status: Acute (9) Gallstone of bile duct with gallbladder inflammation and obstruction Status: Acute #10 acute onset acute blood loss anemia with maroon colored stool suspect GI bleed Plan Reconsult gastroenterology service await further recommendation Monitor hemoglobin attempt keep the hemoglobin greater than 8.5 Pain control Continue IV fluid for hydration Continue IV Unasyn as ordered keep on clear liquid diet Repeat labs in the morning The above dictated assessment and findings were discussed with dr Jd Webb Impression and the plan of care have been dictated as directed. Maria Isabel Ward nurse practitioner acting as a scribe for Dr. Webb
--- NOTE | 2016-10-23 10:18 | P.PN ---
Subjective Principal diagnosis: choledocholithiasis 46 year old male admitted with choledocholithiasis. ERCP with sphincterotomy ballon stone extraction on 10/19. Post ERCP liver enzymes improved however ERCP instrumentation pancreatits developed but since resolved. Asked to reevaluate patient today in regards to GI bleed. Patient states after ERCP he coughed up a small amount of red blood. Started regular diet yesterday for 1 meal and developed increased midepigastric pain with two more episodes of hematemesis. This morning he passed 2 very large bright red bowel movements with persistent epigastric pain. Hemoglobin 11.6. Total bilirubin 3.3 with elevated liver enzymes. Objective - Vital Signs Vital signs: Vital Signs Temp 98.3 F 10/23/16 08:00 Pulse 103 H 10/23/16 09:00 Resp 15 10/23/16 09:00 BP 116/78 10/23/16 09:00 Pulse Ox 98 10/23/16 09:00 Intake & Output 10/22/16 10/23/16 10/23/16 18:59 06:59 18:59 Intake Total 1475 625 475 Output Total 3 Balance 1475 625 472 Intake: IV 975 625 475 Ampicillin-Sulbactam 3 gm 100 100 In Sodium Chloride 0.9% 100 ml @ 100 mls/hr IVPB Q8HR [facility] Rx#:[id number] Sodium Chloride 0.9% 1, 875 625 375 000 ml @ 125 mls/hr IV . Q8H [facility] Rx#:[id number] Oral 500 Output: Stool 3 Other: Voiding Method Urinal Toilet # Voids 1 1 # Bowel Movements 1 - Constitutional General appearance: Present: average body habitus - EENT Eyes: Present: normal appearance - Neck Neck: Present: normal ROM - Respiratory Respiratory: bilateral: CTA - Cardiovascular Rhythm: regular Heart sounds: normal: S1, S2 - Gastrointestinal Gastrointestinal Comment(s): soft nondistended no peritoneal signs. Mild midepigastric tenderness. Bowel sounds present. - Integumentary Integumentary: Present: normal turgor - Neurologic Neurologic: Present: CNII-XII intact - Psychiatric Psychiatric: Present: A&O x's 3, appropriate affect, intact judgment & insight - Labs CBC & Chem 7: 10/23/16 14:00 10/23/16 07:45 Labs: Abnormal Lab Results - Last 24 Hours (Table) 10/22/16 10/23/16 10/23/16 Range/Units 12:09 01:36 01:36 WBC 13.2 H (3.8-10.6) k/uL RBC 4.06 L (4.30-5.90) m/uL Hgb 12.6 L (13.0-17.5) gm/dL Hct 36.9 L (39.0-53.0) % Neutrophils # 11.7 H (1.3-7.7) k/uL Sodium 147 H (137-145) mmol/L BUN 5 L (9-20) mg/dL Glucose 160 H (74-99) mg/dL Total Bilirubin 1.8 H 3.9 H (0.2-1.3) mg/dL AST 191 H (17-59) U/L ALT 116 H 193 H (21-72) U/L Alkaline Phosphatase 146 H 302 H (38-126) U/L Total Protein 5.7 L (6.3-8.2) g/dL Albumin 3.3 L (3.5-5.0) g/dL 10/23/16 10/23/16 Range/Units 07:45 07:45 WBC (3.8-10.6) k/uL RBC 3.74 L (4.30-5.90) m/uL Hgb 11.6 L (13.0-17.5) gm/dL Hct 33.9 L (39.0-53.0) % Neutrophils # (1.3-7.7) k/uL Sodium (137-145) mmol/L BUN (9-20) mg/dL Glucose 111 H (74-99) mg/dL Total Bilirubin 3.3 H (0.2-1.3) mg/dL AST 296 H (17-59) U/L ALT 259 H (21-72) U/L Alkaline Phosphatase 282 H (38-126) U/L Total Protein 5.7 L (6.3-8.2) g/dL Albumin 3.3 L (3.5-5.0) g/dL Assessment and Plan (1) Hematemesis Narrative/Plan: Possible sphincterotomy bleed. Status: Acute (2) Hematochezia Status: Acute (3) Choledocholithiasis Status: Acute (4) S/P ERCP Narrative/Plan: instrumentation induced post ERCP pancreatitis Status: Acute (5) Acute blood loss anemia Status: Acute (6) Elevated liver enzymes Narrative/Plan: Possible recurrence of choledocholithiasis possible blood clot at sphincterotomy site Status: Acute Plan: 1. Serial CBC every 6 hours. 2. We'll proceed with EGD and/or ERCP this afternoon. 3. Continue GI prophylaxis IV Protonix 40 mg every 12. 4. Nothing by mouth. The line installer repairer has discussed the risks, benefits and alternative therapies for the above-mentioned procedure and for both sedation/analgesia as well as necessary blood product administration, if indicated, as they pertain to this patient. The patient has indicated understanding and acceptance of the risks and procedures discussed. Assessment and plan a care discussed with Dr. Ma.
--- NOTE | 2016-10-23 11:17 | P.CNPUL ---
History of Present Illness Consult date: 10/23/16 Chief complaint: GI bleeding History of present illness: 46 year old male admitted with choledocholithiasis. ERCP with sphincterotomy ballon stone extraction on 10/19. Post ERCP liver enzymes improved however ERCP instrumentation pancreatits developed but since resolved. Asked to reevaluate patient today in regards to GI bleed. Patient states after ERCP he coughed up a small amount of red blood. Started regular diet yesterday for 1 meal and developed increased midepigastric pain with two more episodes of hematemesis. This morning he passed 2 very large bright red bowel movements with persistent epigastric pain.The patient is hemodynamically stable. Hemoglobin is stable at 11.3. No hematemesis. No tachycardia. No chest pain. No diaphoresis. No dizziness. The patient was seen again by gastroenterology and the plan is to repeat the EGD to identify the source of bleeding. At the same time the patient may need another ERCP done. Abdomen is nondistended at this point. The patient is awake and alert and following commands and answering questions appropriately. Correlation profile is within normal limits. I noted the blood work and the patient has no significant leukocytosis. Renal function essentially within normal limits. There has been some elevation in the AST and ALP and the liver function tests are abnormal with a bilirubin of 3.3, AST of 296 and ALP of 259. Alkaline phosphatase was also elevated at 282. Lipase level is dropped from a level of 14,000 is down to 219. Review of Systems Vague epigastric pain, waxing and waning. Rest of the positive findings are almost above in history of present illness. Past Medical History Past Medical History: GERD/Reflux, Hyperlipidemia, Liver Disease Additional Past Medical History / Comment(s): , Cholelithiasis, hepatitis C was treated as an outpatient basis, history of myocarditis, chronic back pain, ingrowing toenail, previous history of sinus infections History of Any Multi-Drug Resistant Organisms: None Reported Past Surgical History: Heart Catheterization Additional Past Surgical History / Comment(s): 2006 normal cardiac cath, colonoscopy with benign polypectomy. Past Anesthesia/Blood Transfusion Reactions: No Reported Reaction Past Psychological History: No Psychological Hx Reported Additional Psychological History / Comment(s): Pt resides with spouse and 2 sons. He is independent. Smoking Status: Former smoker Past Alcohol Use History: None Reported Additional Past Alcohol Use History / Comment(s): Pt startes smoking in 1986 and quit in 2011. Past Drug Use History: None Reported - Past Family History Father Family Medical History: Cancer, Dementia, Hyperlipidemia Additional Family Medical History / Comment(s): Father had prostate cancer. He of dementia at the age of 72yrs. Mother Family Medical History: Hyperlipidemia, Hypertension, Thyroid Disorder Medications and Allergies Home Medications Medication Instructions Recorded Confirmed Type Atorvastatin [Lipitor] 20 mg PO HS 10/18/16 10/18/16 History Hydrocodone/Acetaminophen [[place] 1 tab PO Q6H PRN 10/18/16 10/18/16 History 10-325] Ranitidine HCl [Zantac] 150 mg PO ONCE PRN 10/18/16 10/18/16 History Sulfamethox-Tmp 800-160Mg [Bactrim 1 tab PO Q12HR 10/18/16 10/18/16 History DS 800-160 mg] Allergies Allergy/AdvReac Type Severity Reaction Status Date / Time No Known Allergies Allergy Verified 10/18/16 08:30 Physical Exam Vitals: Vital Signs Temp Pulse Pulse Resp BP BP Pulse Ox 10/23/16 10:16 98.3 F 14 137/71 97 10/23/16 10:00 95 18 137/71 98 10/23/16 09:00 103 H 15 116/78 98 10/23/16 08:00 98.3 F 100 16 117/70 98 10/23/16 07:58 16 10/23/16 07:00 94 16 124/66 98 10/23/16 06:00 67 14 114/62 98 10/23/16 05:00 78 16 118/65 100 10/23/16 04:00 65 16 101/55 99 10/23/16 03:00 80 19 102/59 98 10/23/16 02:00 98.0 F 98 12 109/68 98 10/23/16 01:35 86 17 116/70 97 10/22/16 20:00 98.0 F 88 16 150/81 99 10/22/16 14:02 96.5 F L 88 16 139/89 96 Intake and Output 10/22/16 10/23/16 10/23/16 22:59 06:59 14:59 Intake Total 500 625 600 Output Total 3 Balance 500 625 597 Intake: IV 625 600 Ampicillin-Sulbactam 3 gm 100 In Sodium Chloride 0.9% 100 ml @ 100 mls/hr IVPB Q8HR [facility] Rx#:[id number] Sodium Chloride 0.9% 1, 625 500 000 ml @ 125 mls/hr IV . Q8H [facility] Rx#:[id number] Oral 500 Output: Stool 3 Other: Voiding Method Toilet Urinal Toilet # Voids 1 1 # Bowel Movements 1 Head exam was generally normal. There was no scleral icterus or corneal arcus. Mucous membranes were moist.Neck was supple and without jugular venous distension, thyromegaly, or carotid bruits. Carotids were easily palpable bilaterally. There was no adenopathy.Lungs were clear to auscultation and percussion, and with normal diaphragmatic excursion. No wheezes or rales were noted. Cardiac exam revealed the PMI to be normally situated and sized. The rhythm was regular and no extrasystoles were noted during several minutes of auscultation. The first and second heart sounds were normal and physiologic splitting of the second heart sound was noted. There were no murmurs, rubs, clicks, or gallops. Abdomen shows some mild tenderness in the epigastric area. No rebound tenderness. No guarding. Bowel sounds are hypoactive.Examination of the extremities revealed easily palpable radial, femoral and pedal pulses. There was no cyanosis, clubbing or edema. Results - Laboratory Findings CBC and BMP: 10/23/16 07:45 10/23/16 07:45 PT/INR, D-dimer PT 10.4 sec (9.0-12.0) 10/23/16 01:36 INR 1.0 (<1.1) 10/23/16 01:36 Abnormal lab findings: Abnormal Labs 10/20/16 10/20/16 10/20/16 07:02 07:02 07:02 WBC 13.5 H RBC Hgb Hct Neutrophils # 11.2 H Sodium Chloride 109 H BUN Glucose 100 H Total Bilirubin 5.6 H AST 90 H ALT 232 H Alkaline Phosphatase 152 H Total Protein 6.1 L Albumin Amylase 1407 H* Lipase 14377 H 10/21/16 10/21/16 10/22/16 06:45 06:45 07:18 WBC RBC Hgb Hct Neutrophils # 8.3 H Sodium Chloride BUN 8 L 6 L Glucose Total Bilirubin 2.4 H 1.7 H AST ALT 155 H 109 H Alkaline Phosphatase 146 H 128 H Total Protein 6.2 L Albumin Amylase 184 H Lipase 635 H 10/22/16 10/23/16 10/23/16 12:09 01:36 01:36 WBC 13.2 H RBC 4.06 L Hgb 12.6 L Hct 36.9 L Neutrophils # 11.7 H Sodium 147 H Chloride BUN 5 L Glucose 160 H Total Bilirubin 1.8 H 3.9 H AST 191 H ALT 116 H 193 H Alkaline Phosphatase 146 H 302 H Total Protein 5.7 L Albumin 3.3 L Amylase Lipase 10/23/16 10/23/16 07:45 07:45 WBC RBC 3.74 L Hgb 11.6 L Hct 33.9 L Neutrophils # Sodium Chloride BUN Glucose 111 H Total Bilirubin 3.3 H AST 296 H ALT 259 H Alkaline Phosphatase 282 H Total Protein 5.7 L Albumin 3.3 L Amylase Lipase Assessment and Plan Plan: Assessment 1 cholelithiasis/choledocholithiasis status post ERCP with synovectomy and balloon extraction of a common bile duct stone 2 post ERCP pancreatitis, improving 3 abnormal LFTs with elevated bilirubin and alkaline phosphatase, rule out ongoing biliary obstruction and the patient is planned to have another EGD and ERCP today 4 post ERCP GI bleed, source is most likely the duodenum. The manipulation was done and a repeat EGD will be done for today. Meanwhile, the patient is hemodynamic is stable and hemoglobin is at 11.6. 5 upper GI bleed suspected, details as above 6 hepatitis C viral infection of the liver status post treatment 7 hyperlipidemia 8 chronic back pain. 9 History of myocarditis Plan keep the patient ICU. Monitor the liver function tests. Monitor bilirubin and alkaline phosphatase. Monitor the hemoglobin. Watch for any signs of GI bleeding. Utilize IV Protonix 40 mg every 12 hours. Empiric antibiotic coverage with IV Unasyn. EGD and ERCP to follow this afternoon by gastroenterology. Case was discussed with the family.
[2016-10-23 13:04] LABS: Basophils % (A) 0 %; CH 30.7; CHCM 33.8; Eosinophils % (A) 0 %; HCT 31.4 % (39.0-53.0); HDW 3.67; HGB 10.6 gm/dL (13.0-17.5); Luc # (Auto) 0.16; Luc % (Auto) 2; Lymphocytes # (A) 1.7 k/uL (1.0-4.8); Lymphocytes % (A) 23 %; MCH 30.9 pg (25.0-35.0); MCHC 33.7 g/dL (31.0-37.0); MCV 91.7 fL (80.0-100.0); Mean Platelet Volume 7.5; Monocytes # (A) 0.5 k/uL (0-1.0); Monocytes % (A) 7 %; Neutrophils # (A) 4.9 k/uL (1.3-7.7); Neutrophils % (A) 67 %; Poikilocytosis Slight; RBC 3.43 m/uL (4.30-5.90); RDW 13.7 % (11.5-15.5); WBC 7.4 k/uL (3.8-10.6); WBC (Perox) 7.73
[2016-10-23] MEDS: HEPARIN SODIUM,PORCINE 5,000 UNIT/ML 1 ML VIAL SQ SCH ×2 (13:10→17:39)
[2016-10-23 14:13] LABS: CH 31.4; CHCM 35.5; HCT 29.2 % (39.0-53.0); HDW 3.71; HGB 10.3 gm/dL (13.0-17.5); MCH 31.6 pg (25.0-35.0); MCHC 35.4 g/dL (31.0-37.0); MCV 89.3 fL (80.0-100.0); Mean Platelet Volume 7.5; Poikilocytosis Slight; RBC 3.27 m/uL (4.30-5.90); RDW 13.8 % (11.5-15.5); WBC 7.2 k/uL (3.8-10.6)
[2016-10-23] MEDS ORDERED: IV FLUID CONTINUATION 200 ML IV ONE (15:39)
[2016-10-23] MEDS ORDERED: GLYCOPYRROLATE 0.2 MG/ML 2 ML VIAL ONE (15:43)
[2016-10-23] MEDS ORDERED: PROPOFOL 10 MG/ML 20 ML VIAL IV ONE (15:43)
[2016-10-23] MEDS ORDERED: MIDAZOLAM 2 MG/2 ML VIAL ONE (15:43)
[2016-10-23] MEDS ORDERED: KETAMINE 10 MG/ML 20 ML VIAL ONE (15:43)
[2016-10-23] MEDS ORDERED: IOHEXOL 300 MG/ML 50 ML BOTTLE INJ ONE (15:50)
[2016-10-23] MEDS ORDERED: SODIUM CHLORIDE 0.9% 1,000 ML IV ONE (16:09)
--- NOTE | 2016-10-23 16:34 | FL ---
Fluoroscopy INDICATION: Pain FINDINGS: Fluoroscopy time: 1.42 minutes Images obtained: 1. 2 small filling defects. Be within the mid common bile duct. There could be within the differential. IMPRESSIONS: 1. 2 small filling defects could be common bile duct stones. Air could be considered within the diffe rential. Correlate with real-time observation.
--- NOTE | 2016-10-23 16:59 | P.PCN ---
Date of Procedure: 10/23/16 Procedure(s) Performed: Procedure: Esophagogastroduodenoscopy. Endoscopic retrograde cholangiography. Preoperative diagnosis: Hematemesis and hematochezia and drop in hemoglobin, patient S/P sphincterotomy for removal of common bile duct stone on October 19. Postoperative diagnosis: 1. Sphincterotomy site appears edematous with healing ulcerations and possible bleeding spot, but no evidence of clots or bleeding. 2. Cholangiography did not reveal any significant filling defects to suggest retained stones and I suspect significant edema in the area of the papilla. Preparation and sedation: Was provided by anesthesia. Brief clinical history: The patient is a 46-year-old male who presented to the emergency room with the complaint of severe epigastric pain that wakened him up at 3 AM the morning of admission. The patient did not have any nausea or vomiting. His pain and eventually was felt in the back as well. No fever or chills. He presented to the emergency room and was found to have abnormal liver enzymes and cholelithiasis. He was initially scheduled for cholecystectomy for cholecystitis, however, his bilirubin reached 7.5 morning and a HIDA scan showed complete absence of markers in the intestine. We were asked to see him for consideration of ERCP which showed evidence of cholelithiasis with filling defects in the common bile duct noted under fluoroscopy that were not persistent in one single area. I performed adequate sphincterotomy following which I passed the 8.5 mm balloon catheter to the proximal common bile duct and inflated it and brought it across the sphincterotomy site fully inflated couple times. I did not see any actual stones exit in this semi-blind maneuver. The patient had terminal instrumentations related pancreatitis that resolved after 24 hours or so. He coughed up a small amount of red blood after ERCP. He was started regular diet yesterday for 1 meal and developed increased mid-epigastric pain with two more episodes of hematemesis. This morning he passed 2 very large bright red bowel movements with persistent epigastric pain. Hb dropped to 10.3 earlier today. His amylase and lipase are normal. Total bilirubin which was down to 1.8 was up to 3.9 this morning. The patient remained hemodynamically stable with soft abdomen. This evaluation is to assess for a source of bleeding and reevaluate for possible clots or retained common bile duct stones. Procedure: With the patient in the prone position and after informed consent and adequate sedation, I initially passed the Olympus-GIF 160 video upper endoscope through the cricopharyngeus down the esophagus. There were no obvious abnormalities in the esophagus or any mucosal tears or bleeding. The endoscope was then passed into the stomach which was insufflated with air and inspected in detail including the retroflex view in the cardia. All secretions were clear with no evidence of bleeding. The mucosa appeared healthy. Father had endoscope was passed through the pylorus into the duodenum. Pyloric channel did not show any ulcers. Duodenal bulb did not show any ulcers. The descending duodenum in the area of the papilla along the medial aspect of the descending duodenum did not show any spontaneous bleeding. There was some edema in the area of the sphincterotomy and antral red spot but I did not see any actual ulcers or active bleeding in this view. The endoscope was then withdrawn and I proceeded to advance the duodenoscope to perform cholangiography. The scope was passed in the usual fashion down the esophagus into the stomach then through the pylorus into the duodenum and the area of the papilla was brought into view. The area of the sphincterotomy appeared somewhat edematous and there was a short linear ulceration covered with white exudate visibility on the outside and I could see the sphincterotomy opening without any spontaneous bleeding or clots. I used the catheter to inject dye in the biliary tree. There were various size filling defects observed under fluoroscopy consistent with air bubbles and there was no persistent large defect or other indication of retained common bile duct stone on this exam today. The cystic duct appeared patent and the gallbladder filled and there was couple small filling defects in the dependent portion of the gallbladder. The distal common bile duct is somewhat narrow which I suspect is secondary to edema. No other interventions were performed today. The patient tolerated the procedures well. Plan: The patient and his were reassured. Will allow clear liquid diet and observe his course for another 24 hours. Will follow his labs as well. I will discuss with you next steps and timing of his cholecystectomy.
[2016-10-23] MEDS ORDERED: RX INFO: IV CONTRAST WAS GIVEN 1 EACH MISC MISCELLANE PRN (19:39)
--- NOTE | 2016-10-23 19:39 | P.PN ---
Subjective Principal diagnosis: Melanotic stools The patient is a 46-year-old gentleman who presented with choledocholithiasis as well as jaundice. He is status post ERCP following a major bleed with multiple bloody bowel movements earlier today. His is at bedside. He reports epigastric abdominal pain with radiation to the bilateral upper ribs consistent with his previous post-ERCP pancreatitis. He is tolerating clear liquid diet. He also reports that his mother had bleeding diverticular disease. He is incidentally due for a colonoscopy as his last scope was over 8 years ago with polyps removed. He is eager to undergo a cholecystectomy as well with his history of gallstones. Objective - Vital Signs Vital signs: Vital Signs Temp 98 F 10/23/16 16:30 Pulse 96 10/23/16 19:00 Resp 12 10/23/16 19:00 BP 135/83 10/23/16 19:00 Pulse Ox 98 10/23/16 19:00 Intake & Output 10/23/16 10/23/16 10/24/16 06:59 18:59 06:59 Intake Total 625 2025 Output Total 283 Balance 625 1742 Intake: IV 625 2024 Ampicillin-Sulbactam 3 gm 200 In Sodium Chloride 0.9% 100 ml @ 100 mls/hr IVPB Q8HR [facility] Rx#:[id number] Sodium Chloride 0.9% 1, 625 1625 000 ml @ 125 mls/hr IV . Q8H [facility] Rx#:[id number] Output: Urine 275 Stool 8 Other: Voiding Method Urinal Toilet # Voids 1 1 # Bowel Movements 1 - Exam GENERAL: Well developed and in no acute distress. Pleasant. HEENT: No sclera icterus. Extraocular movements grossly intact. Moist buccal mucosa. Head is atraumatic, normocephalic. Hears conversational speech. No nasal drainage. NECK: Supple without lymphadenopathy. No JV distention. CHEST: Non-labored respirations and equal bilateral excursions. CARDIOVASCULAR: Regular rate and rhythm. Palpable 2+ radial pulses. ABDOMEN: Soft, tenderness along the epigastrium. No peritonitis. MUSCULOSKELETAL: No clubbing, cyanosis or edema. NEUROLOGIC: No focal or lateralizing signs. PSYCH: Appropriate affect. Alert and oriented to person, place and time. - Labs CBC & Chem 7: 10/23/16 14:00 10/23/16 07:45 Labs: Abnormal Lab Results - Last 24 Hours (Table) 10/23/16 10/23/16 10/23/16 Range/Units 01:36 01:36 07:45 WBC 13.2 H (3.8-10.6) k/uL RBC 4.06 L 3.74 L (4.30-5.90) m/uL Hgb 12.6 L 11.6 L (13.0-17.5) gm/dL Hct 36.9 L 33.9 L (39.0-53.0) % Neutrophils # 11.7 H (1.3-7.7) k/uL Glucose 160 H (74-99) mg/dL Total Bilirubin 3.9 H (0.2-1.3) mg/dL AST 191 H (17-59) U/L ALT 193 H (21-72) U/L Alkaline Phosphatase 302 H (38-126) U/L Total Protein 5.7 L (6.3-8.2) g/dL Albumin 3.3 L (3.5-5.0) g/dL 10/23/16 10/23/16 10/23/16 Range/Units 07:45 12:00 14:00 WBC (3.8-10.6) k/uL RBC 3.43 L 3.27 L (4.30-5.90) m/uL Hgb 10.6 L 10.3 L (13.0-17.5) gm/dL Hct 31.4 L 29.2 L (39.0-53.0) % Neutrophils # (1.3-7.7) k/uL Glucose 111 H (74-99) mg/dL Total Bilirubin 3.3 H (0.2-1.3) mg/dL AST 296 H (17-59) U/L ALT 259 H (21-72) U/L Alkaline Phosphatase 282 H (38-126) U/L Total Protein 5.7 L (6.3-8.2) g/dL Albumin 3.3 L (3.5-5.0) g/dL Assessment and Plan (1) Choledocholithiasis with acute cholecystitis Status: Acute (2) Epigastric pain Status: Acute (3) Family history of gallbladder disease Status: Acute (4) Hepatitis C virus carrier state Status: Acute (5) Hyperlipidemia Status: Acute (6) Right upper quadrant abdominal pain Status: Acute (7) Acute pancreatitis due to calculus of common bile duct Status: Acute (8) S/P ERCP Status: Acute (9) Gallstone of bile duct with gallbladder inflammation and obstruction Status: Acute (10) Choledocholithiasis Status: Acute (11) Hematochezia Status: Acute (12) History of colon polyps Status: Acute (13) Family history of diverticulitis of colon Status: Acute Plan: 1. He had major lower GI bleeding for which ERCP and upper endoscopy was unremarkable. With his family history of diverticulosis and presenting symptoms , I highly suspect diverticulosis as a cause of his bleed. At minimum, recommend CT of the abdomen and pelvis for further evaluation of pathology. 2. In the interim, agree with clear liquid diet. We'll proceed with cholecystectomy once acute bleeding is stabilized. 3. On further discussion, he reports troubles with urinary hesitation and obstructive uropathy. With this history, I discussed with him Flomax preop and postop to minimize risk of obstructive uropathy. He also has family history of prostate cancer for which urology consultation as outpatient may be of benefit. 4. The care plan including management options were discussed in detail with the patient, his , and dish up person. At this time additional imaging is pending.
[2016-10-23] MEDS: IOHEXOL 350 MG/ML 25 ML BOTTLE (ORAL USE) PO PRN ×2 (20:09→21:13)
--- NOTE | 2016-10-23 20:27 | PN ---
DATE OF SERVICE: 10/23/2016 This 46 -year-old gentleman who was admitted initially with acute cholecystitis also had features of choledocholithiasis. The patient had ERCP and stone extraction and sphincterotomy, possibly. The patient had postoperative pancreatitis yesterday. The patient had recurrence of abdominal pain. Subsequently, the patient had significant gastrointestinal bleed and the hemoglobin went down to 10.3 today from 15.1. The patient admitted, transferred to Intensive Care Unit and being closely monitored at this time. Bilirubin and AST, ALT elevated. Amylase and lipase normal. Past medical history reviewed. REVIEW OF SYSTEMS: CARDIOVASCULAR: No angina or palpitations. RESPIRATORY: No cough. GI: As mentioned earlier. : No dysuria. CENTRAL NERVOUS SYSTEM: No focal deficits. Medications reviewed and included: 1. Tylenol 650 q.4 p.r.n. 2. Unasyn 3 grams q8. 3. Cepacol. 4. Heparin 5000 units subcutaneously q.8h. 5. Dilaudid. 6. Lactated Ringers. 7. Versed. 8. Nitrostat. 9. Zofran. 10. Protonix. 11. Sodium chloride. PHYSICAL EXAMINATION: Patient is alert and oriented times three. Pulse 91, blood pressure 120/74. Respiratory rate 16, temperature 98.9, pulse ox 99% on room air. HEENT: Conjunctivae normal. NECK: No jugular venous distention. CARDIOVASCULAR: S1, S2 muffled. RESPIRATORY: Breath sounds diminished at the bases. A few scattered rhonchi, no crackles. ABDOMEN: Soft. Mild diffuse discomfort. No guarding or rigidity. No mass palpable. LEGS: No edema, no swelling. Nervous system: No focal deficits. Labs at this time shows WBC 7.2, hemoglobin is 10.3 and total bilirubin 3.3. AST is 296. ALT is 259. Alkaline phosphatase is 282. Albumin is 3.3. ASSESSMENT: 1. Abdominal pain, possible acute cholecystitis present on admission. 2. Acute upper gastrointestinal bleeding secondary to sphincterotomy possibly and acute blood loss anemia. 3. Choledocholithiasis, elevated bilirubin AST, ALT, alkaline phosphatase, status post ERCP and sphincterotomy. 4. Abdominal pain, elevated amylase and lipase secondary to post ERCP pancreatitis, possibly, improving. 5. Increased random blood sugar. 6. Increased white blood cell count present on admission. 7. History of gastroesophageal reflux disease. 8. Hypertension. 9. History of chronic liver disease. 10. Chronic back pain. 11. Hepatitis C treated. 12. Normal cardiac catheterization in 2017. 13. FULL CODE. RECOMMENDATIONS AND DISCUSSION: In this 46 -year-old gentleman who presented with multiple complex medical issues, we will monitor the patient closely. Continue the current medications and continue symptomatic treatment. We will monitor hemoglobin closely. Also recommend to stop the heparin and apply Venodyne. Otherwise, continue with current medications. Check PT and PTT. Otherwise, closely monitor. Guarded prognosis because of multiple complex medical issues. Further recommendations to follow. See orders for further details and closely follow with multiple consultants. LUDIVINA
[2016-10-23 21:31] LABS: CH 31.5; CHCM 35.4; HCT 27.4 % (39.0-53.0); HDW 3.77; HGB 9.5 gm/dL (13.0-17.5); MCH 31.2 pg (25.0-35.0); MCHC 34.7 g/dL (31.0-37.0); MCV 89.9 fL (80.0-100.0); Mean Platelet Volume 7.3; Poikilocytosis Slight; RBC 3.05 m/uL (4.30-5.90); WBC 8.9 k/uL (3.8-10.6)
--- NOTE | 2016-10-23 23:23 | CT ---
EXAMINATION TYPE: CT abdomen pelvis w con DATE OF EXAM: 10/23/2016 10:52 PM COMPARISON: NONE HISTORY: Bright red rectal bleeding. Abdominal pain and diverticulitis. CT DLP: 661.30 mGycm Automated exposure control for dose reduction was used. TECHNIQUE: Helical acquisition of images was performed from the lung bases through the pelvis. CONTRAST: Performed with Oral Contrast and with IV Contrast, patient injected with 100 mL of Omnipaque 300. FINDINGS: Lung bases are clear. There is no pleural effusion. Heart size is normal. There is no pericardial eff usion. Liver spleen pancreas appear normal. There is air in the biliary tree. There is high density in the g allbladder consistent with oral contrast reflux into the gallbladder. There is fluid level in the gal lbladder. Spleen appears normal. There is no pancreatic mass. There is no adrenal mass. Kidneys have normal size. There is no hydronephrosis. There is a 2 cm corti aubrie cyst in the posterior left kidney. There is no retroperitoneal adenopathy. There is a 2 cm left r enal parapelvic cyst. Bladder distends smoothly. I see no intestinal wall thickening. There are no dilated loops. Appendix is not seen. There is no sign of appendicitis. Bony structures are intact. I do not see evidence of a ny diverticular disease. There is no evidence of diverticulitis. IMPRESSION: LEFT RENAL CYSTS. NO SIGN OF RENAL MASS OR OBSTRUCTION. NO EVIDENCE OF ANY DIVERTICULOSIS OR DIVERTIC ULITIS. THERE IS AIR IN THE BILIARY TREE WELL THE GALLBLADDER THAT SHOULD BE CORRELATED WITH THE SURGIC AL HISTORY. I DO NOT SEE A CAUSE FOR RECTAL BLEEDING.
[2016-10-24] MEDS: HYDROmorphone 1 MG/ML 1 ML SYRINGE IVP PRN ×2 (00:04→17:54)
[2016-10-24] MEDS: ONDANSETRON 4 MG/2 ML VIAL IVP SCH ×4 (00:04→17:54)
[2016-10-24] MEDS: HEPARIN SODIUM,PORCINE 5,000 UNIT/ML 1 ML VIAL SQ SCH ×2 (00:05→21:18)
[2016-10-24] MEDS: AMPICILLIN-SULBACTAM 3 GM in SODIUM CHLORIDE 0.9% 100 ML IVPB SCH ×3 (00:05→16:37)
[2016-10-24 00:26] LABS: CH 30.7; HCT 27.1 % (39.0-53.0); HDW 3.75; HGB 9.6 gm/dL (13.0-17.5); MCH 32.3 pg (25.0-35.0); MCHC 35.5 g/dL (31.0-37.0); Mean Platelet Volume 7.2; Poikilocytosis Slight; RBC 2.98 m/uL (4.30-5.90); RDW 13.8 % (11.5-15.5); WBC 7.9 k/uL (3.8-10.6)
[2016-10-24 05:12] LABS: Basophils % (A) 0 %; CH 30.6; CHCM 33.7; Eosinophils # (A) 0.1 k/uL (0-0.7); Eosinophils % (A) 1 %; HCT 26.4 % (39.0-53.0); HDW 3.76; HGB 9.2 gm/dL (13.0-17.5); Luc # (Auto) 0.13; Luc % (Auto) 2; Lymphocytes # (A) 2.5 k/uL (1.0-4.8); Lymphocytes % (A) 36 %; MCH 31.8 pg (25.0-35.0); MCHC 34.7 g/dL (31.0-37.0); MCV 91.6 fL (80.0-100.0); Mean Platelet Volume 7.9; Monocytes # (A) 0.4 k/uL (0-1.0); Monocytes % (A) 5 %; Neutrophils % (A) 57 %; Poikilocytosis Slight; RBC 2.88 m/uL (4.30-5.90); RDW 13.9 % (11.5-15.5); WBC 7.1 k/uL (3.8-10.6); WBC (Perox) 7.25
[2016-10-24 05:24] LABS: INR 1.1 (<1.1)
[2016-10-24 05:25] LABS: ALT 182 U/L (21-72); AST 99 U/L (17-59); Alkaline Phosphatase 207 U/L (38-126); Amylase 36 U/L (30-110); Anion Gap 9 mmol/L; Blood Urea Nitrogen 9 mg/dL (9-20); Calcium 8.4 mg/dL (8.4-10.2); Carbon Dioxide 24 mmol/L (22-30); Chloride 109 mmol/L (98-107); Glucose 88 mg/dL (74-99); Non-African American GFR(MDRD) >60 (>60 ml/min/1.73 sqM); Potassium 3.4 mmol/L (3.5-5.1); Sodium 142 mmol/L (137-145); Total Bilirubin 1.1 mg/dL (0.2-1.3); Total Protein 5.1 g/dL (6.3-8.2)
[2016-10-24] MEDS: SODIUM CHLORIDE 0.9% 1,000 ML IV SCH ×3 (06:18→21:18)
--- NOTE | 2016-10-24 09:21 | P.PN ---
Subjective Principal diagnosis: choledocholithiasis s/p EGD yesterday for hematemesis and rectal bleeding. Nonbleeding ulceration seen at sphincterotomy site felt to be source of bleed. Continue to pass multiple small to moderate watery rectal discharge. Midepigastric abdominal pain still present but improved. Denies dyspnea or chest pain. Afebrile. Liver enzymes much improved. Bilirubin normalized. Objective - Vital Signs Vital signs: Vital Signs Temp 98.2 F 10/24/16 08:00 Pulse 82 10/24/16 08:00 Resp 18 10/24/16 08:00 BP 123/70 10/24/16 08:00 Pulse Ox 100 10/24/16 08:00 Intake & Output 10/23/16 10/24/16 10/24/16 18:59 06:59 18:59 Intake Total 2024 1855 375 Output Total 283 304 Balance 1742 1551 375 Weight 88.1 kg Intake: IV 2024 1375 375 Ampicillin-Sulbactam 3 gm 200 In Sodium Chloride 0.9% 100 ml @ 100 mls/hr IVPB Q8HR [facility] Rx#:[id number] Sodium Chloride 0.9% 1, 1625 1375 375 000 ml @ 125 mls/hr IV . Q8H [facility] Rx#:[id number] Oral 480 Output: Urine 275 300 Stool 8 4 Other: Voiding Method Toilet Toilet # Voids 1 1 1 # Bowel Movements 1 1 3 - Constitutional General appearance: Present: no acute distress - EENT Eyes: Present: normal appearance ENT: Present: normal oropharynx - Neck Neck: Present: normal ROM - Respiratory Respiratory: bilateral: CTA - Cardiovascular Rhythm: regular Heart sounds: normal: S1, S2 - Gastrointestinal Gastrointestinal Comment(s): mild midepigastric tenderness General gastrointestinal: Present: soft - Integumentary Integumentary: Present: normal turgor - Psychiatric Psychiatric: Present: A&O x's 3, appropriate affect, intact judgment & insight - Labs CBC & Chem 7: 10/24/16 18:06 10/24/16 04:39 Labs: Abnormal Lab Results - Last 24 Hours (Table) 10/23/16 10/23/16 10/23/16 Range/Units 12:00 14:00 21:20 RBC 3.43 L 3.27 L (4.30-5.90) m/uL Hgb 10.6 L 10.3 L (13.0-17.5) gm/dL Hct 31.4 L 29.2 L (39.0-53.0) % APTT 21.4 L (22.0-30.0) sec Potassium (3.5-5.1) mmol/L Chloride (98-107) mmol/L AST (17-59) U/L ALT (21-72) U/L Alkaline Phosphatase (38-126) U/L Total Protein (6.3-8.2) g/dL Albumin (3.5-5.0) g/dL 10/23/16 10/24/16 10/24/16 Range/Units 21:20 00:12 04:39 RBC 3.05 L 2.98 L 2.88 L (4.30-5.90) m/uL Hgb 9.5 L 9.6 L 9.2 L (13.0-17.5) gm/dL Hct 27.4 L 27.1 L 26.4 L (39.0-53.0) % APTT (22.0-30.0) sec Potassium (3.5-5.1) mmol/L Chloride (98-107) mmol/L AST (17-59) U/L ALT (21-72) U/L Alkaline Phosphatase (38-126) U/L Total Protein (6.3-8.2) g/dL Albumin (3.5-5.0) g/dL 10/24/16 Range/Units 04:39 RBC (4.30-5.90) m/uL Hgb (13.0-17.5) gm/dL Hct (39.0-53.0) % APTT (22.0-30.0) sec Potassium 3.4 L (3.5-5.1) mmol/L Chloride 109 H (98-107) mmol/L AST 99 H (17-59) U/L ALT 182 H (21-72) U/L Alkaline Phosphatase 207 H (38-126) U/L Total Protein 5.1 L (6.3-8.2) g/dL Albumin 2.9 L (3.5-5.0) g/dL Assessment and Plan (1) Hematemesis Narrative/Plan: Suspect secondary to recent sphincterotomy. S/p EGD. Status: Acute (2) Hematochezia Status: Acute (3) Choledocholithiasis Status: Acute (4) S/P ERCP Narrative/Plan: instrumentation induced post ERCP pancreatitis Status: Acute (5) Acute blood loss anemia Status: Acute (6) Elevated liver enzymes Narrative/Plan: improved. Status: Acute Plan: 1. We'll proceed with colonoscopy this afternoon. General surgery Dr. Gutierrez is requesting evaluation prior to cholecystectomy. 3. Continue GI prophylaxis IV Protonix 40 mg every 12. 4. Nothing by mouth. starting at noon. CBC at noon. 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 The patient has indicated understanding and acceptance of the risks and procedures discussed. Assessment and plan a care discussed with Dr. Ma.
[2016-10-24] MEDS: PANTOPRAZOLE 40 MG/10 ML VIAL IVP SCH ×2 (09:29→21:51)
[2016-10-24] MEDS: POTASSIUM CHLORIDE ER 20 MEQ TAB.ER PO SCH ×2 (09:29→10:15)
[2016-10-24] MEDS ORDERED: PEG 3350-NA SULF,BICARB,CL/KCL 4,000 ML BOTTLE PO ONE (10:00)
--- NOTE | 2016-10-24 10:25 | P.PN ---
Subjective 46 year old male admitted with choledocholithiasis. ERCP with sphincterotomy ballon stone extraction on 10/19. Post ERCP liver enzymes improved however ERCP instrumentation pancreatits developed but since resolved. Asked to reevaluate patient today in regards to GI bleed. Patient states after ERCP he coughed up a small amount of red blood. Started regular diet yesterday for 1 meal and developed increased midepigastric pain with two more episodes of hematemesis. This morning he passed 2 very large bright red bowel movements with persistent epigastric pain.The patient is hemodynamically stable. Hemoglobin is stable at 11.3. No hematemesis. No tachycardia. No chest pain. No diaphoresis. No dizziness. The patient was seen again by gastroenterology and the plan is to repeat the EGD to identify the source of bleeding. At the same time the patient may need another ERCP done. Abdomen is nondistended at this point. The patient is awake and alert and following commands and answering questions appropriately. Correlation profile is within normal limits. I noted the blood work and the patient has no significant leukocytosis. Renal function essentially within normal limits. There has been some elevation in the AST and ALP and the liver function tests are abnormal with a bilirubin of 3.3, AST of 296 and ALP of 259. Alkaline phosphatase was also elevated at 282. Lipase level is dropped from a level of 14,000 is down to 219. The patient is seen again today 10/24/2016 in follow-up in the intensive care unit. He is awake and alert in no acute distress. He continues to have multiple liquidy bright red stools. He did undergo EGD yesterday and did not find any active bleeding. There is some ulcerations seen at the sphincter brought any site that could've potential benefit of source of bleeding. The plan is for colonoscopy today and if no significant findings or intervention needed the plan is for cholecystectomy tomorrow. Currently, he denies any shortness of breath, cough or congestion. He is maintaining good O2 saturations in the 90s on room air. He has been hemodynamically stable. No significant abdominal discomfort. Current AST 99, ALT 182, alk phos 207. His hemoglobin is 9.2. No leukocytosis. Afebrile. Objective - Vital Signs Vital signs: Vital Signs Temp 98.2 F 10/24/16 08:00 Pulse 75 10/24/16 10:00 Resp 18 10/24/16 10:00 BP 125/78 10/24/16 10:00 Pulse Ox 100 10/24/16 10:00 Intake & Output 10/23/16 10/24/16 10/24/16 18:59 06:59 18:59 Intake Total 2024 1855 500 Output Total 283 304 Balance 1742 1551 500 Weight 88.1 kg Intake: IV 2024 1375 500 Ampicillin-Sulbactam 3 gm 200 In Sodium Chloride 0.9% 100 ml @ 100 mls/hr IVPB Q8HR [facility] Rx#:[id number] Sodium Chloride 0.9% 1, 1625 1375 500 000 ml @ 125 mls/hr IV . Q8H [facility] Rx#:[id number] Oral 480 Output: Urine 275 300 Stool 8 4 Other: Voiding Method Toilet Toilet # Voids 1 1 1 # Bowel Movements 1 1 1 - Exam GENERAL EXAM: Alert, active, comfortable in no apparent distress. HEAD: Normocephalic. EYES: Normal reaction of pupils, equal size. NOSE: Clear with pink turbinates. THROAT: No erythema or exudates. NECK: No masses, no JVD. CHEST: No chest wall deformity. LUNGS: Equal air entry with no crackles, wheeze, rhonchi or dullness. CVS: S1 and S2 normal with no audible mumurs, regular rhythm. ABDOMEN: No hepatosplenomegaly, normal bowel sounds, no guarding or rigidity. SPINE: No scoliosis or deformity SKIN: No rashes CENTRAL NERVOUS SYSTEM: No focal deficits, tone is normal in all 4 extremities. Remedies: There is no significant peripheral edema. No clubbing, no cyanosis. Peripheral pulses are intact. - Labs CBC & Chem 7: 10/24/16 11:55 10/24/16 04:39 Labs: Abnormal Lab Results - Last 24 Hours (Table) 10/23/16 10/23/16 10/23/16 Range/Units 12:00 14:00 21:20 RBC 3.43 L 3.27 L (4.30-5.90) m/uL Hgb 10.6 L 10.3 L (13.0-17.5) gm/dL Hct 31.4 L 29.2 L (39.0-53.0) % APTT 21.4 L (22.0-30.0) sec Potassium (3.5-5.1) mmol/L Chloride (98-107) mmol/L AST (17-59) U/L ALT (21-72) U/L Alkaline Phosphatase (38-126) U/L Total Protein (6.3-8.2) g/dL Albumin (3.5-5.0) g/dL 10/23/16 10/24/16 10/24/16 Range/Units 21:20 00:12 04:39 RBC 3.05 L 2.98 L 2.88 L (4.30-5.90) m/uL Hgb 9.5 L 9.6 L 9.2 L (13.0-17.5) gm/dL Hct 27.4 L 27.1 L 26.4 L (39.0-53.0) % APTT (22.0-30.0) sec Potassium (3.5-5.1) mmol/L Chloride (98-107) mmol/L AST (17-59) U/L ALT (21-72) U/L Alkaline Phosphatase (38-126) U/L Total Protein (6.3-8.2) g/dL Albumin (3.5-5.0) g/dL 10/24/16 Range/Units 04:39 RBC (4.30-5.90) m/uL Hgb (13.0-17.5) gm/dL Hct (39.0-53.0) % APTT (22.0-30.0) sec Potassium 3.4 L (3.5-5.1) mmol/L Chloride 109 H (98-107) mmol/L AST 99 H (17-59) U/L ALT 182 H (21-72) U/L Alkaline Phosphatase 207 H (38-126) U/L Total Protein 5.1 L (6.3-8.2) g/dL Albumin 2.9 L (3.5-5.0) g/dL Assessment and Plan Plan: Assessment 1 cholelithiasis/choledocholithiasis status post ERCP with sphincterectomy and balloon extraction of a common bile duct stone 2 post ERCP pancreatitis, improving 3 abnormal LFTs with elevated bilirubin and alkaline phosphatase, rule out ongoing biliary obstruction and the patient is planned to have another EGD and ERCP today 4 post ERCP GI bleed, source is most likely the duodenum. He had a repeat EGD yesterday and there is no active bleeding. There was some ulceration at the sphincterotomy site which was possibly the source. Meanwhile, the patient is hemodynamic is stable and hemoglobin is at 9.2. 5 upper GI bleed suspected, details as above 6 hepatitis C viral infection of the liver status post treatment 7 hyperlipidemia 8 chronic back pain. 9 History of myocarditis Plan: The patient was seen and evaluated by Dr. Chisholm. His labs were reviewed. He remains on IV Unasyn for now. Continue IV Protonix. The plan is for colonoscopy today and if no significant contraindications a cholecystectomy is planned for tomorrow. We'll continue to monitor his hemoglobin. We'll continue to follow and make further recommendations based on his clinical status.
[2016-10-24 11:14] VITALS: BMI 27.8
[2016-10-24 12:21] LABS: CH 31.3; CHCM 35.7; HCT 31.8 % (39.0-53.0); HDW 3.86; HGB 11.5 gm/dL (13.0-17.5); MCHC 36.2 g/dL (31.0-37.0); MCV 88.5 fL (80.0-100.0); Mean Platelet Volume 9.3; Poikilocytosis Slight; RDW 13.9 % (11.5-15.5)
[2016-10-24 13:25] LABS: Add Differential Manual Differential
[2016-10-24 13:30] LABS: Nucleated Red Blood Cells 0 /100 WBC (0-0); Total Cells Counted 100
--- NOTE | 2016-10-24 13:48 | P.PN ---
Subjective 46-year-old male being seen this morning in the intensive care unit. Patient is standing at the side of the bed. Patient states he has had frequent maroon to clear colored watery stools during the night . Patient states he continues to have midepigastric discomfort but is slightly improved. Patient currently is denying any shortness of breath dizziness lightheadedness or chest pain. Labs were reviewed. Liver enzymes are improving. And the bilirubin is normalizing. Patient is status post EGD done on September 22 it showed nonbleeding ulcerations seen at sphincterotomy site felt to be the source of the bleed did note the GI service plans on doing a colonoscopy this afternoon and to continue the patient on IV protonix as ordered the hemoglobin this morning at 4 AM was 9.2 Objective - Vital Signs Vital signs: Vital Signs Temp 98.2 F 10/24/16 12:00 Pulse 85 10/24/16 13:00 Resp 20 10/24/16 13:00 BP 136/81 10/24/16 13:00 Pulse Ox 97 10/24/16 13:00 Intake & Output 10/23/16 10/24/16 10/24/16 18:59 06:59 18:59 Intake Total 2024 1855 850 Output Total 283 304 Balance 1742 1551 850 Weight 88.1 kg 88.1 kg Intake: IV 5 1375 850 Ampicillin-Sulbactam 3 gm 200 100 In Sodium Chloride 0.9% 100 ml @ 100 mls/hr IVPB Q8HR [facility] Rx#:[id number] Sodium Chloride 0.9% 1, 1625 1375 750 000 ml @ 125 mls/hr IV . Q8H [facility] Rx#:[id number] Oral 480 Output: Urine 275 300 Stool 8 4 Other: Voiding Method Toilet Toilet Toilet # Voids 1 1 1 # Bowel Movements 1 1 3 - Exam Physical exam 46-year-old male standing at the bedside this morning denying chest pain dizziness lightheadedness or shortness of breath Lungs essentially clear with adequate air movement on room air sats are documented 98% Heart S1-S2 audible regular heart rate in the 90s sinus rhythm on the monitor denying chest pain Abdomen soft and not distended bowel tones present no rebound currently reports having maroon to clear watery stools during the night frequent. Extremities no edema noted - Labs CBC & Chem 7: 10/24/16 11:55 04/06/17 04:39 Labs: Abnormal Lab Results - Last 24 Hours (Table) 10/23/16 10/23/16 10/23/16 Range/Units 14:00 21:20 21:20 RBC 3.27 L 3.05 L (4.30-5.90) m/uL Hgb 10.3 L 9.5 L (13.0-17.5) gm/dL Hct 29.2 L 27.4 L (39.0-53.0) % APTT 21.4 L (22.0-30.0) sec Potassium (3.5-5.1) mmol/L Chloride (98-107) mmol/L AST (17-59) U/L ALT (21-72) U/L Alkaline Phosphatase (38-126) U/L Total Protein (6.3-8.2) g/dL Albumin (3.5-5.0) g/dL 10/24/16 10/24/16 10/24/16 Range/Units 00:12 04:39 04:39 RBC 2.98 L 2.88 L (4.30-5.90) m/uL Hgb 9.6 L 9.2 L (13.0-17.5) gm/dL Hct 27.1 L 26.4 L (39.0-53.0) % APTT (22.0-30.0) sec Potassium 3.4 L (3.5-5.1) mmol/L Chloride 109 H (98-107) mmol/L AST 99 H (17-59) U/L ALT 182 H (21-72) U/L Alkaline Phosphatase 207 H (38-126) U/L Total Protein 5.1 L (6.3-8.2) g/dL Albumin 2.9 L (3.5-5.0) g/dL 10/24/16 Range/Units 11:55 RBC 3.60 L (4.30-5.90) m/uL Hgb 11.5 L (13.0-17.5) gm/dL Hct 31.8 L (39.0-53.0) % APTT (22.0-30.0) sec Potassium (3.5-5.1) mmol/L Chloride (98-107) mmol/L AST (17-59) U/L ALT (21-72) U/L Alkaline Phosphatase (38-126) U/L Total Protein (6.3-8.2) g/dL Albumin (3.5-5.0) g/dL Assessment and Plan Plan: Impression (1) Choledocholithiasis with acute cholecystitis Status: Acute (2) Epigastric pain Status: Acute (3) Family history of gallbladder disease Status: Acute (4) Hepatitis C virus carrier state Status: Acute (5) Hyperlipidemia Status: Acute (6) Right upper quadrant abdominal pain Status: Acute (7) Acute pancreatitis due to calculus of common bile duct Status: Acute (8) S/P ERCP Status: Acute (9) Gallstone of bile duct with gallbladder inflammation and obstruction Status: Acute #10 acute onset acute blood loss anemia with maroon colored stool suspect GI bleed #11 status post 10/23/2016 Sphincterotomy site appears edematous with healing ulcerations and possible bleeding spot, but no evidence of clots or bleeding. Cholangiography did not reveal any significant filling defects to suggest retained stones and suspect significant edema in the area of the papilla. Hematemesis and hematochezia patient S/P sphincterotomy for removal of common bile duct stone on October 19. Plan Per GI plan is colonoscopy this afternoon Monitor hemoglobin attempt keep the hemoglobin greater than 8.5 Pain control Continue IV fluid for hydration Continue IV Unasyn as ordered keep on clear liquid diet Repeat labs in the morning The above dictated assessment and findings were discussed with dr Jd Webb Impression and the plan of care have been dictated as directed. Maria Isabel Ward nurse practitioner acting as a scribe for Dr. Webb
[2016-10-24] MEDS ORDERED: PHENYLEPHRINE-0.9% NACL SYG 1 MG/10 ML SYRINGE ONE (17:11)
[2016-10-24] MEDS ORDERED: PROPOFOL 10 MG/ML 20 ML VIAL IV ONE (17:11)
[2016-10-24] MEDS ORDERED: IV FLUID CONTINUATION 200 ML IV ONE (17:15)
--- NOTE | 2016-10-24 17:58 | P.PCN ---
Date of Procedure: 10/24/16 Procedure(s) Performed: Procedure: Total colonoscopy. Preoperative diagnosis: Rectal bleeding. Postoperative diagnosis: Exam of the colon and terminal ileum within normal limits with no evidence of active bleeding. Preparation: GoLYTELY prep. Sedation: Was provided by anesthesia. Brief clinical history: The patient is a 56-year-old male who was admitted for cholelithiasis and possible cholecystitis. I performed an ERCP with sphincterotomy and balloon extraction over the weekend for suspected common bile duct stone. The patient had instrumentation related pancreatitis that resolved in 24 hours, however, couple days later he started to have hematochezia and dropped his hemoglobin significantly. His liver enzymes which improved after the sphincterotomy started to rise again that prompted an EGD and repeat cholangiogram yesterday. There was no active bleeding noted, however , the sphincterotomy area appeared edematous with healing sphincterotomy ulcerations. A cholangiogram did not show any persistent filling defects to indicate retained common bile duct stones. The patient continued to pass reddish liquid the output overnight. Despite the absence of significant change in his hemoglobin, this evaluation was requested prior to his gallbladder surgery. His the hemoglobin came up to 11.6 in the course of the day. His bilirubin is now back to normal and his transaminases and alkaline phosphatase are coming down nicely. The details are summarized in the history and physical and dictated consultations and progress notes. Procedure: With the patient on his left lateral decubitus position and after informed consent and adequate sedation, the perianal area was inspected and it did not show any fissures or fistulas. There were no masses felt on digital rectal examination. The Olympus CFQ 160L video colonoscope was then inserted in the rectum in the usual fashion and advanced to the cecum. I intubated the ileocecal valve and examined the terminal ileum. Terminal ileum and colon appeared healthy with no edema, erythema, friability, ulceration, exudation or spontaneous bleeding. No polyps or tumors were seen or any obvious diverticular disease or any evidence of bleeding. All secretions encountered were clear and bilious in color. I retroflexed the endoscope in the rectum before the endoscope was withdrawn. The patient tolerated the procedure well. Plan: The patient and his were reassured. I started him on full fluid diet. I see no contraindication to proceed with his cholecystectomy as you are planning.
[2016-10-24 18:22] LABS: CH 30.8; CHCM 33.8; HCT 29.4 % (39.0-53.0); HDW 3.76; HGB 10.1 gm/dL (13.0-17.5); MCH 31.8 pg (25.0-35.0); MCHC 34.6 g/dL (31.0-37.0); MCV 91.9 fL (80.0-100.0); Mean Platelet Volume 7.3; Poikilocytosis Slight; RBC 3.19 m/uL (4.30-5.90); RDW 13.9 % (11.5-15.5); WBC 9.1 k/uL (3.8-10.6)
[2016-10-25] MEDS: ONDANSETRON 4 MG/2 ML VIAL IVP SCH ×5 (00:12→23:49)
[2016-10-25] MEDS: HYDROmorphone 1 MG/ML 1 ML SYRINGE IVP PRN ×5 (00:12→21:49)
[2016-10-25] MEDS: AMPICILLIN-SULBACTAM 3 GM in SODIUM CHLORIDE 0.9% 100 ML IVPB SCH ×4 (00:13→23:49)
--- NOTE | 2016-10-25 01:28 | P.HPADDEND ---
H&P Addendum H&P Addendum Date: 10/25/16 Colonoscopy performed demonstrating no obvious signs of bleeding. Patient's liver enzymes and total bilirubin had proved. We'll proceed with laparoscopic cholecystectomy.
[2016-10-25] MEDS: SODIUM CHLORIDE 0.9% 1,000 ML IV SCH ×2 (06:02→11:29)
[2016-10-25 08:16] LABS: CH 30.8; HCT 28.1 % (39.0-53.0); HDW 3.69; HGB 9.2 gm/dL (13.0-17.5); Hypochromasia Slight; MCH 30.9 pg (25.0-35.0); MCHC 32.7 g/dL (31.0-37.0); MCV 94.4 fL (80.0-100.0); Mean Platelet Volume 7.4; Poikilocytosis Slight; RBC 2.98 m/uL (4.30-5.90); RDW 14.2 % (11.5-15.5); WBC 7.8 k/uL (3.8-10.6)
[2016-10-25 08:27] LABS: Amylase 42 U/L (30-110); Anion Gap 10 mmol/L; Blood Urea Nitrogen 6 mg/dL (9-20); Calcium 8.9 mg/dL (8.4-10.2); Carbon Dioxide 25 mmol/L (22-30); Chloride 107 mmol/L (98-107); Glucose 88 mg/dL (74-99); Non-African American GFR(MDRD) >60 (>60 ml/min/1.73 sqM); Potassium 3.8 mmol/L (3.5-5.1); Sodium 142 mmol/L (137-145)
--- NOTE | 2016-10-25 09:10 | PN ---
DATE OF SERVICE: 10/24/2016 This 46-year-old gentleman admitted initially with cholelithiasis, also choledocholiths. The patient had ERCP and sphincterotomy. Subsequently, the patient had abdominal pain and episode of post ERCP pancreatitis. While recovering from the pancreatitis, the patient developed gastrointestinal bleed with blood loss anemia. Patient was transferred to ICU and is being closely monitored. The hemoglobin is rather stable at 10.1 and the patient had ERCP, which showed ulcerated area of sphincterotomy without any active bleeding per Dr. Ma and the patient also had colonoscopy which did not show any active bleeding at this time. The patient was closely monitored. Dr. Hill is following the patient closely for possible laparoscopic cholecystectomy. The patient also had a CAT scan of the abdomen, which did not show any evidence of any active bleeding. LFTs are still elevated but showing a diminishing trend. Bilirubin is normalized. PAST MEDICAL HISTORY: Reviewed. REVIEW OF SYSTEMS: CARDIOVASCULAR: No angina. RESPIRATORY: As mentioned earlier. GI: As mentioned earlier. : No dysuria. NERVOUS SYSTEM: No numbness or weakness. Current medications are reviewed and include: 1. Tylenol 650 q.4 p.r.n. 2. Unasyn 3 grams q.8. 3. Cepacol. 4. Dilaudid. 5. Nitrostat. 6. Zofran. 7. Protonix. PHYSICAL EXAMINATION: Patient is alert and oriented x2. Pulse 78, blood pressure 112/70, respirations 20, temperature 99.2, pulse ox 99% on room air. HEENT: Conjunctivae pale. Oral mucosa moist. NECK: No jugular venous distention. No carotid bruit. No lymph node enlargement. CARDIOVASCULAR: S1 and S2, muffled. No S3, no S4. RESPIRATORY: Breath sounds diminished at the bases. No rhonchi, no crackles. ABDOMEN: Soft. Mild diffuse discomfort. no guarding, no rigidity. No mass palpable. No bowel sounds present. No ascites. LEGS: No edema, no swelling. NERVOUS SYSTEM: Higher function as mentioned. Moves all four limbs. No focal motor deficits. LYMPHATIC: No lymphadenopathy in the neck, axillae or groin. SKIN: No ulcer, rash or bleeding. LABS: WBC 9.9, hemoglobin is 10.1. Otherwise, potassium 3.4. AST is 19, ALT is 182, diminishing trends. ASSESSMENT: 1. Abdominal pain, possible acute cholecystitis, present on admission. 2. Acute upper gastrointestinal bleeding secondary to sphincterotomy, possibly with acute blood loss anemia. 3. Choledocholithiasis, elevated bilirubin, AST, ALT, alkaline phosphatase, status post ERCP and sphincterotomy. 4. Abdominal pain with elevated amylase and lipase secondary ERCP, post-ERCP pancreatitis improved. 5. Increased random blood sugar. 6. Increased WBC present on admission. 7. History of gastroesophageal reflux disease. 8. Hypertension. 9. History of chronic liver disease. 10. History of chronic back pain. 11. Hepatitis C. 12. Normal cardiac catheterization in 2017. 13. FULL CODE. RECOMMENDATIONS AND DISCUSSION: I recommend to continue the current medications, continue monitoring and symptomatic treatment in this 46-year-old gentleman. We will recommend repeat labs. Monitor closely, DVT prophylaxis. Otherwise closely follow with Surgery for possible laparoscopic cholecystectomy. GI input appreciated. Further recommendations to follow.
[2016-10-25] MEDS: PANTOPRAZOLE 40 MG/10 ML VIAL IVP SCH ×2 (09:13→20:31)
--- NOTE | 2016-10-25 13:57 | P.PN ---
Subjective 46 year old male admitted with choledocholithiasis. ERCP with sphincterotomy ballon stone extraction on 10/19. Post ERCP liver enzymes improved however ERCP instrumentation pancreatits developed but since resolved. Asked to reevaluate patient today in regards to GI bleed. Patient states after ERCP he coughed up a small amount of red blood. Started regular diet yesterday for 1 meal and developed increased midepigastric pain with two more episodes of hematemesis. This morning he passed 2 very large bright red bowel movements with persistent epigastric pain.The patient is hemodynamically stable. Hemoglobin is stable at 11.3. No hematemesis. No tachycardia. No chest pain. No diaphoresis. No dizziness. The patient was seen again by gastroenterology and the plan is to repeat the EGD to identify the source of bleeding. At the same time the patient may need another ERCP done. Abdomen is nondistended at this point. The patient is awake and alert and following commands and answering questions appropriately. Correlation profile is within normal limits. I noted the blood work and the patient has no significant leukocytosis. Renal function essentially within normal limits. There has been some elevation in the AST and ALP and the liver function tests are abnormal with a bilirubin of 3.3, AST of 296 and ALP of 259. Alkaline phosphatase was also elevated at 282. Lipase level is dropped from a level of 14,000 is down to 219. The patient is seen again today 10/24/2016 in follow-up in the intensive care unit. He is awake and alert in no acute distress. He continues to have multiple liquidy bright red stools. He did undergo EGD yesterday and did not find any active bleeding. There is some ulcerations seen at the sphincter brought any site that could've potential benefit of source of bleeding. The plan is for colonoscopy today and if no significant findings or intervention needed the plan is for cholecystectomy tomorrow. Currently, he denies any shortness of breath, cough or congestion. He is maintaining good O2 saturations in the 90s on room air. He has been hemodynamically stable. No significant abdominal discomfort. Current AST 99, ALT 182, alk phos 207. His hemoglobin is 9.2. No leukocytosis. Afebrile. The patient is seen again today 10/25/2016 in follow-up on the regular medical floor. He did undergo colonoscopy yesterday which revealed no evidence of active bleeding. The plan is for him to undergo laparoscopic cholecystectomy today. He is currently awake and alert in no acute distress. He denies any shortness of breath, cough or congestion. Obtaining good O2 saturations in the high 90s on room air. No significant abdominal discomfort. No further bleeding. His current hemoglobin is 9.2. He is afebrile. He was dynamically stable. Objective - Vital Signs Vital signs: Vital Signs Temp 98.0 F 10/25/16 07:00 Pulse 83 10/25/16 07:00 Resp 16 10/25/16 07:00 BP 116/66 10/25/16 07:00 Pulse Ox 96 10/25/16 07:00 Intake & Output 10/24/16 10/25/16 10/25/16 18:59 06:59 18:59 Intake Total 1500 1225 Output Total 0 Balance 1500 1225 Weight 88.1 kg Intake: IV 1500 1225 Ampicillin-Sulbactam 3 gm 200 100 In Sodium Chloride 0.9% 100 ml @ 100 mls/hr IVPB Q8HR [facility] Rx#:[id number] Sodium Chloride 0.9% 1, 1250 1125 000 ml @ 125 mls/hr IV . Q8H [facility] Rx#:[id number] Output: Urine 0 Other: Voiding Method Toilet # Voids 1 1 # Bowel Movements 1 1 - Exam GENERAL EXAM: Alert, active, comfortable in no apparent distress. HEAD: Normocephalic. EYES: Normal reaction of pupils, equal size. NOSE: Clear with pink turbinates. THROAT: No erythema or exudates. NECK: No masses, no JVD. CHEST: No chest wall deformity. LUNGS: Equal air entry with no crackles, wheeze, rhonchi or dullness. CVS: S1 and S2 normal with no audible mumurs, regular rhythm. ABDOMEN: No hepatosplenomegaly, normal bowel sounds, no guarding or rigidity. SPINE: No scoliosis or deformity SKIN: No rashes CENTRAL NERVOUS SYSTEM: No focal deficits, tone is normal in all 4 extremities. Remedies: There is no significant peripheral edema. No clubbing, no cyanosis. Peripheral pulses are intact. - Labs CBC & Chem 7: 10/25/16 07:47 10/25/16 07:47 Labs: Abnormal Lab Results - Last 24 Hours (Table) 10/24/16 10/25/16 10/25/16 Range/Units 18:06 07:47 07:47 RBC 3.19 L 2.98 L (4.30-5.90) m/uL Hgb 10.1 L 9.2 L (13.0-17.5) gm/dL Hct 29.4 L 28.1 L (39.0-53.0) % BUN 6 L (9-20) mg/dL Assessment and Plan Plan: Assessment 1 cholelithiasis/choledocholithiasis status post ERCP with sphincterectomy and balloon extraction of a common bile duct stone and the plan is for cholecystectomy today. 2 post ERCP pancreatitis, improving 3 abnormal LFTs with elevated bilirubin and alkaline phosphatase, rule out ongoing biliary obstruction and the patient is planned to have another EGD and ERCP today 4 post ERCP GI bleed, source is most likely the duodenum. He had a repeat EGD yesterday and there is no active bleeding. There was some ulceration at the sphincterotomy site which was possibly the source. Meanwhile, the patient is hemodynamically stable and hemoglobin is at 9.2. 5 upper GI bleed suspected, details as above. Colonoscopy yesterday revealed no active bleeding, no abnormalities. 6 hepatitis C viral infection of the liver status post treatment 7 hyperlipidemia 8 chronic back pain. 9 History of myocarditis Plan: The patient was seen and evaluated by Dr. Chisholm. He is stable from the pulmonary and critical care standpoint. He'll proceed with cholecystectomy today. We'll see the patient on as-needed basis.
[2016-10-25 19:02] LABS: ALT 177 U/L (21-72); AST 76 U/L (17-59); Alkaline Phosphatase 191 U/L (38-126); Total Protein 5.6 g/dL (6.3-8.2)
--- NOTE | 2016-10-25 21:12 | PN ---
DATE OF SERVICE: 10/25/2016 This 46-year-old gentleman who was admitted with abdominal pain and possible acute cholecystitis also had upper GI bleeding. Dr. Gutierrez is planning surgery today. No chest pain. No palpitation. No fever. ERCP and colonoscopy showing laceration of the sphincterotomy site. On exam, alert and oriented x3. Pulse 83, blood pressure 111/66, respiration 16, temperature 98 degrees, pulse ox 96% on room air. HEENT: Conjunctivae normal. NECK: No jugular venous distention. CARDIOVASCULAR SYSTEM: S1, S2 muffled. RESPIRATORY SYSTEM: Breath sounds diminished at the bases. No rhonchi. No crackles. ABDOMEN: Soft. Non-tender. LEGS: No edema. No swelling. NERVOUS SYSTEM: No focal deficit. Labs at this time show hemoglobin 9.2. Otherwise, BUN is 6. ASSESSMENT: 1. Abdominal pain, possible acute cholecystitis, present on admission. 2. Acute upper gastrointestinal bleeding secondary to sphincterotomy, possibly with acute blood loss anemia. 3. Choledocholithiasis with elevated bilirubin, AST, ALT, alkaline phosphatase, status post ERCP and sphincterotomy. 4. Abdominal pain with elevated amylase and lipase secondary to ERCP; post-ERCP pancreatitis, improved. 5. Increased random blood sugar. 6. Increased white count, present on admission. 7. History of gastroesophageal reflux disease. 8. Hypertension, essential. 9. History of chronic liver disease. 10. History of chronic back pain. 11. Hepatitis C. 12. Normal cardiac catheterization in 2017. 13. FULL CODE. RECOMMENDATIONS AND DISCUSSION: I recommend to continue with the current medications, continue with the monitoring, symptomatic treatment. Otherwise, at this time I recommend followup closely with Surgery. Possible laparoscopic cholecystectomy today. Repeat labs. Further recommendations to follow. MTDD
[2016-10-26] MEDS: HYDROmorphone 1 MG/ML 1 ML SYRINGE IVP PRN ×6 (00:52→22:43)
[2016-10-26] MEDS: ONDANSETRON 4 MG/2 ML VIAL IVP SCH ×3 (05:33→17:20)
[2016-10-26] MEDS: SODIUM CHLORIDE 0.9% 1,000 ML IV SCH ×4 (05:34→21:25)
[2016-10-26] MEDS: PANTOPRAZOLE 40 MG/10 ML VIAL IVP SCH ×2 (08:18→20:37)
[2016-10-26] MEDS: AMPICILLIN-SULBACTAM 3 GM in SODIUM CHLORIDE 0.9% 100 ML IVPB SCH ×2 (08:18→17:20)
[2016-10-26 08:27] LABS: Basophils % (A) 0 %; CH 31.5; CHCM 33.4; Eosinophils # (A) 0.1 k/uL (0-0.7); Eosinophils % (A) 1 %; HCT 29.5 % (39.0-53.0); HDW 3.69; HGB 9.7 gm/dL (13.0-17.5); Luc # (Auto) 0.12; Luc % (Auto) 2; Lymphocytes # (A) 1.6 k/uL (1.0-4.8); Lymphocytes % (A) 22 %; MCH 31.2 pg (25.0-35.0); MCHC 32.7 g/dL (31.0-37.0); MCV 95.4 fL (80.0-100.0); Mean Platelet Volume 7.1; Monocytes # (A) 0.3 k/uL (0-1.0); Monocytes % (A) 5 %; Neutrophils # (A) 5.2 k/uL (1.3-7.7); Neutrophils % (A) 71 %; Poikilocytosis Slight; RBC 3.09 m/uL (4.30-5.90); RDW 14.7 % (11.5-15.5); WBC 7.4 k/uL (3.8-10.6); WBC (Perox) 7.92
[2016-10-26 08:46] LABS: ALT 163 U/L (21-72); AST 95 U/L (17-59); Alkaline Phosphatase 168 U/L (38-126); Anion Gap 11 mmol/L; Blood Urea Nitrogen 7 mg/dL (9-20); Calcium 8.9 mg/dL (8.4-10.2); Carbon Dioxide 26 mmol/L (22-30); Chloride 104 mmol/L (98-107); Glucose 82 mg/dL (74-99); Non-African American GFR(MDRD) >60 (>60 ml/min/1.73 sqM); Potassium 3.9 mmol/L (3.5-5.1); Sodium 141 mmol/L (137-145); Total Bilirubin 1.2 mg/dL (0.2-1.3); Total Protein 6.1 g/dL (6.3-8.2)
--- NOTE | 2016-10-26 08:54 | P.HPADDEND ---
H&P Addendum H&P Addendum Date: 10/25/16 Patient seen and evaluated. Patient has history of symptomatic choledocholithiasis including cholecystitis and complicated hospital course. Given moderate surgical delay in the operating room, patient was offered options including surgical intervention by another surgeon. Patient was adamant to proceed with surgical intervention with me despite delays. As a result, surgery has been deferred until Friday morning.
[2016-10-26] MEDS ORDERED: IV FLUID CONTINUATION 1,000 ML IV ONE (10:22)
--- NOTE | 2016-10-26 10:38 | P.PN ---
Subjective Principal diagnosis: Choledocholithiasis with symptomatic gallstone The patient is a 46-year-old gentleman who presented with choledocholithiasis as well as jaundice. He then developed several days of melanotic stool. He completed a repeat ERCP with upper endoscopy and colonoscopy without any evidence of acute bleeding. His liver enzymes including jaundice is now resolved. No further ports of melanotic stools. Objective - Vital Signs Vital signs: Vital Signs Temp 96.2 F L 10/26/16 07:00 Pulse 78 10/26/16 07:00 Resp 16 10/26/16 07:00 BP 116/60 10/26/16 07:00 Pulse Ox 99 10/26/16 07:00 Intake & Output 10/25/16 10/26/16 10/26/16 18:59 06:59 18:59 Intake Total 0 Balance 0 Intake: Oral 0 Other: Voiding Method Toilet # Voids 3 1 - Exam GENERAL: Well developed and in no acute distress. Pleasant. HEENT: No sclera icterus. Extraocular movements grossly intact. Moist buccal mucosa. Head is atraumatic, normocephalic. Hears conversational speech. No nasal drainage. NECK: Supple without lymphadenopathy. No JV distention. CHEST: Non-labored respirations and equal bilateral excursions. CARDIOVASCULAR: Regular rate and rhythm. Palpable 2+ radial pulses. ABDOMEN: Soft, no peritonitis. Tenderness along the epigastrium MUSCULOSKELETAL: No clubbing, cyanosis or edema. NEUROLOGIC: No focal or lateralizing signs. PSYCH: Appropriate affect. Alert and oriented to person, place and time. - Labs CBC & Chem 7: 10/26/16 07:53 10/26/16 07:53 Labs: Abnormal Lab Results - Last 24 Hours (Table) 10/25/16 10/26/16 10/26/16 Range/Units 07:47 07:53 07:53 RBC 3.09 L (4.30-5.90) m/uL Hgb 9.7 L (13.0-17.5) gm/dL Hct 29.5 L (39.0-53.0) % BUN 6 L 7 L (9-20) mg/dL AST 76 H 95 H (17-59) U/L ALT 177 H 163 H (21-72) U/L Alkaline Phosphatase 191 H 168 H (38-126) U/L Total Protein 5.6 L 6.1 L (6.3-8.2) g/dL Albumin 3.4 L (3.5-5.0) g/dL Assessment and Plan (1) Choledocholithiasis with acute cholecystitis Status: Acute (2) Epigastric pain Status: Acute (3) Family history of gallbladder disease Status: Acute (4) Hepatitis C virus carrier state Status: Acute (5) Hyperlipidemia Status: Acute (6) Right upper quadrant abdominal pain Status: Acute (7) Acute pancreatitis due to calculus of common bile duct Status: Acute (8) S/P ERCP Status: Acute (9) Gallstone of bile duct with gallbladder inflammation and obstruction Status: Acute (10) Choledocholithiasis Status: Acute (11) Hematochezia Status: Acute (12) History of colon polyps Status: Acute (13) Family history of diverticulitis of colon Status: Acute (14) GI bleed Status: Acute (15) Jaundice Status: Acute (16) Acute blood loss anemia Status: Acute (17) Chest pain Status: Acute (18) Elevated liver enzymes Status: Acute Plan: 1. His melena is resolved. His GI bleed is resolved. We'll proceed with cholecystectomy today. 2. Recommend continued observation post cholecystectomy. 3. May start low-fat diet in 24 hours following surgery.
[2016-10-26] MEDS ORDERED: MIDAZOLAM 2 MG/2 ML VIAL IVP ONE (11:08)
[2016-10-26] MEDS ORDERED: ONDANSETRON 4 MG/2 ML VIAL ONE (11:10)
[2016-10-26] MEDS ORDERED: NEOSTIGMINE 1 MG/ML 10 ML VIAL ONE (11:10)
[2016-10-26] MEDS ORDERED: SUCCINYLCHOLINE CHLORIDE VIAL 200 MG/10 ML VIAL IV ONE (11:10)
[2016-10-26] MEDS ORDERED: fentaNYL (PF) 50 MCG/ML 2 ML AMP ONE (11:10)
[2016-10-26] MEDS ORDERED: KETOROLAC 30 MG/ML 1 ML VIAL ONE (11:10)
[2016-10-26] MEDS ORDERED: PROPOFOL 10 MG/ML 20 ML VIAL IV ONE (11:10)
[2016-10-26] MEDS ORDERED: ROCURONIUM BROMIDE 10 MG/ML 10 ML VIAL IV ONE (11:10)
[2016-10-26] MEDS ORDERED: GLYCOPYRROLATE 0.2 MG/ML 2 ML VIAL ONE (11:10)
[2016-10-26] MEDS ORDERED: METOCLOPRAMIDE 5 MG/ML 2 ML VIAL ONE (11:10)
[2016-10-26] MEDS ORDERED: LIDOCAINE 1% INJ 10MG/ML (20 ML MDV) ONE (11:10)
[2016-10-26] MEDS ORDERED: BUPIVACAIN-EPI 0.25%-1:200,000 30 ML VIAL SQ ONE (11:28)
[2016-10-26] MEDS ORDERED: LACTATED RINGERS 1,000 ML IV ONE (11:33)
[2016-10-26] MEDS: HYDROmorphone 1 MG/ML 1 ML SYRINGE IVP ONE ×2 (12:21→12:26)
[2016-10-26] MEDS ORDERED: HYDROcodone/APAP 5-325MG 1 EACH TAB PO PRN (12:32)
[2016-10-26] MEDS ORDERED: NALOXONE 0.4 MG/ML 1 ML VIAL IV PRN (12:32)
[2016-10-26 12:39] VITALS: RESP 16
--- NOTE | 2016-10-26 12:43 | P.OP ---
Date of Procedure: 10/26/16 Description of Procedure: SURGEON: BRITTNEY ABAD MD PROCESS EQUIPMENT OPERATOR: None. PREOPERATIVE DIAGNOSES: 1. Choledocholithiasis with obstruction and history of jaundice. 2. Gastrointestinal bleed of unclear etiology. 3. History of hepatitis C. 4. Hypercholesterolemia. 5. Family history of gallbladder disease. 6. Symptomatic gallstones. 7. Elevated liver enzymes including AST, ALT, alkaline phosphatase. 8. Acute blood loss anemia without blood transfusions due to acute gastrointestinal bleed. 9. Status post ERCP for choledocholithiasis. POSTOPERATIVE DIAGNOSES: 1. Choledocholithiasis with obstruction and history of jaundice. 2. Gastrointestinal bleed of unclear etiology. 3. History of hepatitis C. 4. Hypercholesterolemia. 5. Family history of gallbladder disease. 6. Symptomatic gallstones. 7. Elevated liver enzymes including AST, ALT, alkaline phosphatase. 8. Acute blood loss anemia without blood transfusions due to acute gastrointestinal bleed. 9. Status post ERCP for choledocholithiasis. 10. Left direct inguinal hernia, initial. OPERATION: Laparoscopic cholecystectomy ANESTHESIA: General with 30 mL 0.25% Marcaine with epinephrine. ESTIMATED BLOOD LOSS: 10 mL. SPECIMENS REMOVED: Gallbladder. COMPLICATIONS: None. INDICATIONS: The patient is a 46-year-old female who presents with a complicated history of gallstones with symptomatic choledocholithiasis. He has a personal history of hepatitis C completely treated. He had severe jaundice with a positive HIDA scan demonstrating complete biliary obstruction and required emergent ERCP. He had delayed gastrointestinal bleed of unclear etiology and developed acute blood loss anemia. He had a repeat ERCP including upper endoscopy and colonoscopy demonstrating no cause for his severe bleed. For 24-48 hours prior to his proposed surgery, his GI bleed had resolved. As he has symptomatic gallstones, surgical intervention with a laparoscopic cholecystectomy was described at length including injury to the biliary tree, bleeding, infection, need for further surgery. Informed consent was obtained. DESCRIPTION OF THE PROCEDURE: The patient was brought to the operating room, laid in supine position. After general induction, the abdomen was prepped and draped in a standard sterile fashion. Prior to incision, a timeout protocol was confirmed with surgical team regarding patient's name, procedure to be performed including preoperative medications for which bilateral SCDs for DVT prophylaxis. Heparin was contraindicated for severe gastrointestinal bleed. A transverse 5 mm incision was made above the umbilicus and off to the right of the midline. Please note the skin was localized prior to incision. A 0 degree 5-mm laparoscopic trocar entry was performed and entered into the peritoneal cavity. Diagnostic laparoscopy confirmed no injury to bowel, viscera or mesentery. Along the right groin no hernia was identified. The left groin demonstrated a small direct left inguinal hernia. The liver serosa was completely unremarkable. Next, two 5 mm trocars were placed along the right costal margin followed by a 11 mm port at the left upper quadrant. The patient was placed in steep reverse Trendelenburg position with the right side up. The gallbladder fundus was retracted over the dome of the liver. Initial attention was brought to the infundibulum which was gently retracted in the inferior lateral approach. Using a Kittner, the cystic duct including the cystic artery was carefully skeletonized. Using a large clip gin pole operator 2 clips were placed proximally, and 2 clip was placed distally along the cystic duct and then cut. Again care was taken to avoid any injury to the biliary tree such as the common bile duct. Next, the cystic artery was clipped thrice proximally, once distally and then cauterized. The mesentery along the cystic structures were dressed using Sonicision. Electro-Bovie cautery was used to remove the gallbladder from the hepatic fossa without decompression of the gallbladder. Hemostasis was checked and found to be adequate. The gallbladder was removed from the abdominal cavity using an Endo Catch bag and passed off for further pathological analysis. All instruments and pneumoperitoneum were removed from the abdominal cavity. The fascial defect was less than 8 mm for the 11-mm port site. The rest of incisions were reapproximated using 4-0 Monocryl in an interrupted subcuticular fashion. A total of 30 mL of 0.25% Marcaine with epinephrine was infiltrated to all wounds for postop analgesia. Dermabond was applied to the skin. At the end of the procedure, needle, sponge, and instrument count was verified correct by cell technician. The patient had tolerated the procedure well and was taken to postanesthesia care unit in stable condition. Intraoperative films were discussed and reviewed with the patient's family who were pleased with the level of care. FINDINGS: 1. Symptomatic gallstones. 2. Unremarkable liver surface. 3. Left direct inguinal hernia, small.
--- NOTE | 2016-10-26 13:53 | P.PN ---
Progress Note - Text Patient is doing well after surgery. Plan of advancing diet tomorrow. Likely discharge home tomorrow with follow-up in the office in 3 days.
[2016-10-27] MEDS: ONDANSETRON 4 MG/2 ML VIAL IVP SCH ×3 (00:32→12:38)
[2016-10-27] MEDS: AMPICILLIN-SULBACTAM 3 GM in SODIUM CHLORIDE 0.9% 100 ML IVPB SCH ×2 (00:32→07:57)
[2016-10-27] MEDS: HYDROmorphone 1 MG/ML 1 ML SYRINGE IVP PRN ×3 (00:34→07:57)
[2016-10-27] MEDS: SODIUM CHLORIDE 0.9% 1,000 ML IV SCH (06:08)
[2016-10-27 07:20] LABS: Basophils % (A) 0 %; CH 31.7; CHCM 33.2; Eosinophils # (A) 0.1 k/uL (0-0.7); Eosinophils % (A) 1 %; HCT 31.3 % (39.0-53.0); HDW 3.81; HGB 9.9 gm/dL (13.0-17.5); Hypochromasia Slight; Luc # (Auto) 0.12; Luc % (Auto) 2; Lymphocytes # (A) 1.6 k/uL (1.0-4.8); Lymphocytes % (A) 21 %; MCH 30.7 pg (25.0-35.0); MCHC 31.7 g/dL (31.0-37.0); MCV 96.8 fL (80.0-100.0); Macrocytosis Slight; Mean Platelet Volume 7.2; Monocytes # (A) 0.3 k/uL (0-1.0); Monocytes % (A) 4 %; Neutrophils # (A) 5.5 k/uL (1.3-7.7); Neutrophils % (A) 72 %; Poikilocytosis Slight; RBC 3.23 m/uL (4.30-5.90); RDW 15.4 % (11.5-15.5); WBC 7.6 k/uL (3.8-10.6); WBC (Perox) 7.97
[2016-10-27 07:40] LABS: ALT 143 U/L (21-72); AST 72 U/L (17-59); Alkaline Phosphatase 167 U/L (38-126); Anion Gap 11 mmol/L; Blood Urea Nitrogen 5 mg/dL (9-20); Carbon Dioxide 27 mmol/L (22-30); Chloride 104 mmol/L (98-107); Glucose 97 mg/dL (74-99); Non-African American GFR(MDRD) >60 (>60 ml/min/1.73 sqM); Sodium 142 mmol/L (137-145); Total Bilirubin 1.2 mg/dL (0.2-1.3); Total Protein 6.3 g/dL (6.3-8.2)
[2016-10-27 07:57] VITALS: BP 124/73; PULSE 78; TEMP 97.4
[2016-10-27] MEDS: PANTOPRAZOLE 40 MG/10 ML VIAL IVP SCH (07:57)
--- NOTE | 2016-10-27 10:35 | PN ---
DATE OF SERVICE: 10/26/2016 This 46-year-old gentleman admitted with cholecystitis and multiple other complex medical issues including pancreatitis and gastrointestinal bleed is being closely monitored. Dr. Gutierrez performed laparoscopic cholecystectomy today. No chest or palpitation. No fever. On exam, alert and oriented x3. Pulse is 72, blood pressure 136/47, respiratory rate 16, temperature 97.6, pulse ox 98% on room air. HEENT: Conjunctivae normal. NECK: No jugular venous distention. CARDIOVASCULAR: S1, S2 muffled. RESPIRATORY: Breath sounds diminished at the bases. No rhonchi, no crackles. ABDOMEN: Soft, status post laparoscopic cholecystectomy. LEGS: No edema. No swelling. Nervous system: No focal deficits. LABS: WBC 7.3, hemoglobin is 9.7. AST 95. ALT 163, alkaline phosphatase is 162 showing diminishing trends. ASSESSMENT: 1. Acute cholecystitis status post laparoscopic cholecystectomy. 2. Acute upper gastrointestinal bleeding secondary to sphincterotomy, possibly with acute blood loss anemia. 3. Choledocholithiasis with elevated bilirubin, AST, ALT, alkaline phosphatase status post ERCP and sphincterotomy. 4. Abdominal pain with elevated amylase and lipase secondary to ERCP post-ERCP pancreatitis improved. 5. Increased random blood sugar. 6. Increased WBC, present on admission. 7. History of gastroesophageal reflux disease. 8. Hypertension, essential. 9. History of chronic liver disease. 10. History of chronic back pain. 11. History of hepatitis C. 12. History normal cardiac catheterization in 2017. 13. FULL CODE. RECOMMENDATIONS AND DISCUSSION: Continue current medications. Continue symptomatic treatment. DVT prophylaxis. Pain medications. Repeat labs. Closely follow with surgery. Further recommendations to follow.
--- NOTE | 2016-10-28 18:06 | DS ---
DATE OF ADMISSION: 10/19/2016 DATE OF DISCHARGE: 10/27/2016 FINAL DIAGNOSES: 1. Acute cholecystitis, status post laparoscopic cholecystectomy. 2. Acute upper gastrointestinal bleeding, possibly secondary to sphincterotomy, with acute blood loss anemia. 3. Choledocholithiasis, elevated bilirubin, AST, ALT, alkaline phosphatase, status post ERCP and sphincterotomy. 4. Abdominal pain with elevated amylase and lipase secondary to ERCP and post-ERCP pancreatitis, improved. 5. Increased random blood sugar. 6. Increased white count, present on admission. 7. History of gastroesophageal reflux disease. 8. Hypertension, essential. 9. History of chronic liver disease. 10. History of chronic back pain. 11. History of hepatitis C. 12. History of normal cardiac catheterization. 13. FULL CODE. DISCHARGE DISPOSITION: The patient will be discharged in stable condition with guarded prognosis. Surgery cleared the patient for discharge. HISTORY OF PRESENT ILLNESS: This 46-year-old gentleman with a past medical history of multiple medical problems was admitted with cholecystitis. The patient had ERCP and post-ERCP pancreatitis and bleeding, also. Improved significantly with a conservative line of management. Dr. Gutierrez performed laparoscopic cholecystectomy. On exam, vitals are stable. CARDIOVASCULAR SYSTEM: S1, S2 muffled. RESPIRATORY: No rhonchi. No crackles. ABDOMEN: Status post surgery. NERVOUS SYSTEM: No focal deficit. LABS: Hemoglobin 9.9. AST is 72. ALT is 143. Alkaline phosphatase 167. The patient will be discharged in stable condition. Diet is soft, as tolerated. Otherwise, follow up with Liz as advised. Follow up with Dr. Smith in 1 to 2 days. Follow up with Dr. Zamora as recommended. Surgical recommendations per Dr. Gutierrez. Other than that, the medications are: 1. Lipitor 20 mg at bedtime. 2. Hydrocodone 1 tablet q.6 p.r.n. 3. Zantac 150 mg p.r.n. Once again, the patient will be discharged in stable condition with guarded prognosis.
== END 2016-10-27 14:10 | disposition home or self-care (01) | DRG 417 ==
LOC: EC 07:14 → 3OBS 10:33 → OBSVTOIN 10-19 09:04 → 3SUR 10-19 12:35 → 6ICU 10-23 01:47 → 5MS5E 10-24 20:27
PROVIDERS: ADMIT Hospitalist; ATTEND Hospitalist
PROC: 0F798ZZ Dilation of Common Bile Duct, Via Natural or Artificial Opening Endoscopic (ICD-10-PCS; principal; 2016-10-19 10:00)
PROC: 0DJ08ZZ Inspection of Upper Intestinal Tract, Via Natural or Artificial Opening Endoscopic (ICD-10-PCS; 2016-10-22)
PROC: 0FJB8ZZ Inspection of Hepatobiliary Duct, Via Natural or Artificial Opening Endoscopic (ICD-10-PCS; 2016-10-22)
PROC: 0DJD8ZZ Inspection of Lower Intestinal Tract, Via Natural or Artificial Opening Endoscopic (ICD-10-PCS; 2016-10-24)
PROC: 0FT44ZZ Resection of Gallbladder, Percutaneous Endoscopic Approach (ICD-10-PCS; 2016-10-26)
DX: K80.63 Calculus of gallbladder and bile duct with acute cholecystitis with obstruction (principal); K85.90 Acute pancreatitis without necrosis or infection, unspecified; D62 Acute posthemorrhagic anemia; K92.2 Gastrointestinal hemorrhage, unspecified; B18.2 Chronic viral hepatitis C; E78.00 Pure hypercholesterolemia, unspecified; E78.5 Hyperlipidemia, unspecified; G89.29 Other chronic pain; K21.9 Gastro-esophageal reflux disease without esophagitis; K40.90 Unilateral inguinal hernia, without obstruction or gangrene, not specified as recurrent; Y84.8 Other medical procedures as the cause of abnormal reaction of the patient, or of later complication, without mention of misadventure at the time of the procedure; Z79.899 Other long term (current) drug therapy; Z82.49 Family history of ischemic heart disease and other diseases of the circulatory system; Z86.010 Personal history of colon polyps; Z87.891 Personal history of nicotine dependence
CPT/HCPCS: 36415; 43239; 43260; 43262; 45378; 71020; 74177; 74330; 76705; 78226; 80053; 80061; 82150; 82550; 82553; 83690; 83735; 83880; 84100; 84484; 85025; 85027; 85610; 85730; 86850; 86900; 86901; 88304; 93005; 93306; 99285

== ENCOUNTER → 2020-09-19 | Outpatient (CLI) | payer BC ==
--- NOTE | 2020-09-19 09:19 | US ---
EXAMINATION TYPE: US prostate transrectal DATE OF EXAM: 09/19/2020 COMPARISON: NONE CLINICAL HISTORY: N40.0 Benign prostatic hyperplasia w/o lower urina. Slow urine stream This examination was performed using the transrectal probe. EXAM MEASUREMENTS: Gland Size: 4.4 x 2.0 x 4.0cm Volume: 18.5ml Predicted PSA: 2.22 Actual PSA (if available):Not available Heterogeneous gland with calcifications. Additional images show seminal vesicles appear within normal limits. Prostate gland measures normal i n size with central calcifications. No suspicious hypoechoic nodule. IMPRESSION: As above. Predicted PSA = volume x 0.12 ng/ml Calculated Volume = 0.5236 x L x W x H
== END ==
LOC: RADUSWWP 06:50
PROVIDERS: ATTEND Family Medicine
DX: N40.0 Benign prostatic hyperplasia without lower urinary tract symptoms (principal)
CPT/HCPCS: 76872